=== PATIENT | male | born 1935 | race Caucasian/White ===

== ENCOUNTER 2017-10-27 10:29 | Outpatient (CLI) | payer MEDICARE, OTHER ==
--- NOTE | 2017-10-27 12:50 | CT ---
CT LUMBAR SPINE: TECHNIQUE: Multiple axial tomograms obtained through the lumbar spine with multiplanar reconstruction. HISTORY: Low back pain. FINDINGS: Lumbar vertebrae maintain normal height. Degenerative disk changes are seen at all levels of the lum bar spine with vacuum phenomenon at multiple levels demonstrating gas in the disk spaces. There is n o evidence of spondylolysis. There is a slight listhesis at L5-S1. At L1-2, disk bulge combined with facet hypertrophy results in mild central canal stenosis. At L2-3, the disk bulge combined with facet and ligamentous hypertrophy results in mild central canal stenosis. At L3-4, disk bulge combined with facet and ligamentous hypertrophy is more prominent resulting in mo derate to severe central canal stenosis, bilateral foraminal stenosis secondary to hypertrophic ma e. At L4-5, disk bulge and hypertrophic change results in moderate to severe central canal stenosis. Bi lateral foraminal stenosis. At L5-S1, minimal disk bulge. There is prominent facet hypertrophy without significant central canal stenosis. Mild foraminal narrowing. IMPRESSION: Moderate to severe central canal stenosis seen at L3-4 and L4-5 as described above. Degenerative dis k changes at all levels as noted above. POS: [facility]
--- NOTE | 2017-10-27 13:27 | CT ---
HEAD CT NONCONTRAST: COMPARISON: No prior comparison. CLINICAL HISTORY: Altered mental status. FINDINGS: There is age-related parenchymal volume loss with mild compensatory dilatation of the ventricular sys tem. There is a moderate-sized region of left frontal encephalomalacia with ex vacuo dilatation of t he left frontal horn. There is scattered mild white matter hypoattenuation compatible with microvasc ular ischemic disease. There is no intracranial hemorrhage, mass effect, or midline shift. There is a small retention cyst anteriorly within the right maxillary sinus. Mild mucosal thickening of the p aranasal sinuses is present. IMPRESSION: 1. No acute intracranial abnormality. 2. Left frontal encephalomalacia superior imposed upon mild chronic microvascular ischemic disease. 3. Parenchymal volume loss. POS: [facility]
== END 2017-10-27 10:30 | disposition home or self-care (01) ==
LOC: TBSIIMAG 10:29
PROVIDERS: ATTEND Psychiatry & Neurology Neurology
DX: M47.816 Spondylosis without myelopathy or radiculopathy, lumbar region (principal); R25.9 Unspecified abnormal involuntary movements; M51.36 Other intervertebral disc degeneration, lumbar region; M48.061 Spinal stenosis, lumbar region without neurogenic claudication; G93.89 Other specified disorders of brain
CPT/HCPCS: 70450; 72131

== ENCOUNTER 2018-10-10 09:54 | Inpatient (IN) | payer MEDICARE ==
[2018-10-10] MEDS ORDERED: Acetaminophen 500 MG TAB ONE (10:45)
[2018-10-10 11:11] LABS: Band 9 % (5-11); Eosinophils 3 % (0-10); Hemoglobin 12.9 g/dL (14.0-18.0); Lymphocytes 13 % (21-51); MDiff Complete? YES; Mean Corpuscular HGB CONC 32.7 g/dL (32.0-36.0); Mean Corpuscular Hemoglobin 32.2 pg (27.0-31.0); Mean Corpuscular Volume 98.4 fL (78.0-98.0); Mean Platelet Volume 7.7 fL (7.4-10.4); Monocytes 3 % (0-10); Neutrophil 72 % (42-75); Platelet Count 236 thou/uL (130-400); Red Blood Cell (RBC) Count 4.01 mill/uL (4.70-6.10); White Blood Cell (WBC) Count 10.5 thou/uL (4.8-10.8)
[2018-10-10 11:11] LABS: ALT (SGPT) 28 U/L (8-55); AST (SGOT) 37 U/L (5-34); Albumin 3.4 g/dL (3.4-4.8); Alkaline Phosphatase 61 U/L (40-150); Anion Gap 14 mmol/L (10-20); BUN (Urea Nitrogen) 28 mg/dL (8.4-25.7); Bilirubin, Total 0.8 mg/dL (0.2-1.2); Calc. Creatinine Clearance 0 mL/min (70-130); Calcium 9.6 mg/dL (7.8-10.44); Carbon Dioxide 23 mmol/L (23-31); Chloride 108 mmol/L (98-107); Estimated GFR-MDRD 55; Globulin 3.9 g/dL (2.4-3.5); Glucose 113 mg/dL (83-110); Protein, Total 7.3 g/dL (5.8-8.1); Sodium 141 mmol/L (136-145)
[2018-10-10 11:34] LABS: CKMB 4.9 ng/mL (0-6.6)
[2018-10-10 12:10] LABS: Bilirubin Negative (Negative); Blood, Urine Negative (Negative); Clarity CLOUDY (Clear); Glucose, Urine (Dipstick) Negative (Negative); Leukocyte Negative (Negative); Nitrite Negative (Negative); Protein, Urine (Dipstick) 30 mg/dL (Neg-Trace); Specific Gravity, Urine 1.023 (1.002-1.036); Urobilinogen 0.2 mg/dL (0.2-1.0)
[2018-10-10 12:11] LABS: Bacteria/HPF None Seen HPF (None Seen); Hyaline Casts/LPF 7-10 HYALINE CAST LPF (0-3 Hyaline); Pathc Cast-AUWi Flag 1.88 (0-2.49); Squamous Epithelial 0-3 HPF (0-3); WBC/HPF 0-3 HPF (0-3)
[2018-10-10 12:12] LABS: RBC/HPF None Seen HPF (0-3); Renal Epithelial None Seen HPF (0-3); Transitional Epithelial NONE SEEN HPF (0-3)
--- NOTE | 2018-10-10 12:15 | RAD ---
CHEST 1 VIEW: Date: 10/10/18 HISTORY: Fever. FINDINGS: No comparison. Cardiac silhouette is magnified by projection. Pulmonary vasculature is unremarkable. Patient is slig htly rotated rightward. No lobar consolidation or evidence of pneumothorax. Mild bibasilar atelectasi s. There is calcification in the arterial structures and a dual lead left subclavian cardiac electron ic device. IMPRESSION: 1. Atherosclerosis. 2. No active cardiopulmonary abnormalities are otherwise demonstrated. POS: [facility]
[2018-10-10] MEDS ORDERED: Aspirin 325 MG TAB ONE (13:15)
[2018-10-10] MEDS ORDERED: cefTRIAXone\\ROCEPHIN 2 GM VIAL ONE (13:15)
[2018-10-10 14:34] LABS: Troponin I 0.029 ng/mL (< 0.028)
--- NOTE | 2018-10-10 14:49 | CT ---
CT HEAD NONCONTRAST DATE: 10/10/18 HISTORY: Altered mental status. FINDINGS: Compared to 10/27/17. There is no evidence of acute intracranial hemorrhage or infarct. Diffuse cortical atrophy and chroni c ischemic small vessel disease are again demonstrated. Old left frontal infarct appears stable. No m ass effect or shift of midline structures. There is calcification of the arterial structures of the b rain base. Visualized paranasal sinuses remain well aerated. IMPRESSION: Chronic-type findings are stable. No acute intracranial abnormalities are demonstrated. POS: [facility]
[2018-10-10] MEDS ORDERED: Calcium Carbonate 500 MG ChewTAB PO PRN (15:23)
[2018-10-10] MEDS ORDERED: Ondansetron ODT 4 MG TAB PO PRN (15:23)
[2018-10-10] MEDS ORDERED: Ondansetron PF 4 MG/2 ML Vial IVP PRN (15:23)
[2018-10-10] MEDS ORDERED: Nitroglycerin 0.4 MG TAB (25 Tab Bottle) PO PRN (15:23)
[2018-10-10] MEDS ORDERED: Vancomycin HCl 1 GM in Premix Bag 1 BAG IVPB SCH ×2 (15:30→18:45)
--- NOTE | 2018-10-10 15:49 | HP ---
PRIMARY CARE PHYSICIAN: Brett Calvo MD PRIMARY NEUROLOGIST: Law Fuentes MD CHIEF COMPLAINT: Altered mentation. HISTORY OF PRESENT ILLNESS: The patient is an 83-year-old male with Parkinson disease, presented to the emergency room by his family with generalized weakness along with altered mentation of 5 to 6 days duration. The patient currently lives at home with his . He had a stroke approximately 1 year ago and has mild cognitive deficit as well as Parkinson disease. He is normally able to walk on his own. However, over the last 5 days, he has been bedridden. He has been very slow to respond. No aggravating or relieving factor reported. There is no nausea, vomiting, diarrhea, or constipation. Weakness of one extremity more than the other. Neck stiffness, cough, shortness of breath, or wheezing reported. In the emergency room, his initial vital signs showed temperature 101.1, respiration 24, pulse rate of 77 with blood pressure 192/96 with O2 saturation 98% on room air. Chest x-ray was negative for infiltrate. He received ceftriaxone, Tylenol, aspirin, and IV fluids in the emergency room. PAST MEDICAL HISTORY: 1. Parkinson disease. 2. History of cerebrovascular accident. 3. Sick sinus syndrome, status post pacemaker. 4. Chronic sinusitis. 5. Benign prostatic hypertrophy. PAST SURGICAL HISTORY: Pacemaker placement. Cataract surgery in the left eye last year. ALLERGIES: THE PATIENT IS ALLERGIC TO PENICILLIN. CURRENT HOME MEDICATIONS: 1. Finasteride 5 mg daily. 2. Flomax 0.4 mg daily. 3. Aspirin 81 mg daily. SOCIAL HISTORY: As discussed above, he is a former smoker. He is retired. Spouse is the decision maker. He is a do not resuscitate. FAMILY HISTORY: Heart disease and hypertension runs in his family. REVIEW OF SYSTEMS: Cannot be obtained from the patient due to current cognitive status. PHYSICAL EXAMINATION: VITAL SIGNS: As discussed above. GENERAL: An 83-year-old male with altered mentation. HEENT: Head; atraumatic, normocephalic. Sclerae are anicteric. Dry mucous membranes. No oral lesion. NECK: Supple. No JVD. No neck stiffness. LUNGS: Showed diminished air entry at bilateral bases with scattered rales. Lungs were symmetrical. No significant wheezing appreciated. HEART: S1 and S2 present. Regular rate and rhythm. No rubs or gallops appreciated. 2/6 systolic murmur over the mitral area noted. ABDOMEN: Soft, nontender. Bowel sounds present. No rebound or guarding. No costovertebral angle tenderness. EXTREMITIES: No edema or calf tenderness. NEUROLOGY AND PSYCHIATRY: Could not be reliably done due to current cognitive status. The patient opens eyes to verbal commands and goes back to sleep. He was alert, awake, and oriented x2 per RN earlier today. He was following commands appropriately according to the ER nurse. SKIN: Warm and dry. LYMPH NODES: No palpable lymph nodes in the neck. PERIPHERAL VASCULAR: Radial pulses palpable bilaterally. MUSCULOSKELETAL: No joint swelling or tenderness. LABORATORY FINDINGS: CBC showed WBC 10.5, hemoglobin 12.9, hematocrit 39.5, and platelet of 236. Urinalysis showed hyaline casts. Chemistry showed sodium 141, potassium 4, chloride 108, bicarb 23, BUN 28, and creatinine 1.26. Troponin 0.029 with CK-MB 4.9. Lactic acid 1.2. Influenza testing was negative. Chest x-ray by my review was negative for definite infiltrate. CT scan of the brain showed chronic findings. IMPRESSION: 1. Generalized weakness, multifactorial. 2. Toxic metabolic encephalopathy. 3. Sepsis suspected secondary to pneumonia. Exact source unknown. Questionable aspiration pneumonia. 4. Macrocytic anemia, rule out vitamin B12, folic acid deficiency. 5. Benign prostatic hypertrophy. 6. Parkinson disease. 7. Penicillin allergy. 8. Dehydration/prerenal azotemia. 9. Chronic kidney disease, stage 2. 10. Elevated troponins probably secondary to demand ischemia. 11. History of cerebrovascular accident. PLAN: The patient will be monitored on the Telemetry Unit. Serial troponins will be obtained. Empiric antibiotics will be initiated for possible pneumonia. Blood and urine cultures have been sent. We will recheck labs in a.m. IV hydration. We will check vitamin B12, folic acid for anemia as well as progressive cognitive deficit. Physical Therapy, Occupational Therapy, and Speech Therapy will be consulted. Frequent neuro checks. Plan of care was discussed with the family at the bedside. They stated understanding. CODE STATUS: Do not resuscitate, which was confirmed with the spouse. Job ID: [id number]
[2018-10-10] MEDS ORDERED: Levofloxacin 500 mg/D5W 100 ml Premix Bag ONE (15:59)
[2018-10-10] MEDS: Sodium Chloride 0.9% 1,000 ML IV SCH (16:01)
[2018-10-10 16:58] VITALS: BMI 25.8
[2018-10-10 17:36] LABS: Troponin I 0.024 ng/mL (< 0.028)
[2018-10-10] MEDS: Senokot S 8.6-50 MG TAB PO SCH (21:20)
[2018-10-10] MEDS: Tamsulosin HCl 0.4 MG CAP PO SCH (22:16)
[2018-10-11] MEDS: Sodium Chloride 0.9% 1,000 ML IV SCH ×2 (03:21→16:23)
[2018-10-11] MEDS: Acetaminophen 325 MG TAB PO PRN ×2 (03:29→17:15)
[2018-10-11 06:48] LABS: Anion Gap 10 mmol/L (10-20); BUN (Urea Nitrogen) 31 mg/dL (8.4-25.7); Calc. Creatinine Clearance 62 mL/min (70-130); Calcium 8.1 mg/dL (7.8-10.44); Carbon Dioxide 24 mmol/L (23-31); Chloride 111 mmol/L (98-107); Estimated GFR-MDRD 79; Glucose 106 mg/dL (83-110); Magnesium 1.5 mg/dL (1.6-2.6); Potassium 3.6 mmol/L (3.5-5.1); Sodium 141 mmol/L (136-145)
[2018-10-11 07:04] LABS: Band 6 % (5-11); Eosinophils 4 % (0-10); Folate (Folic Acid) 13.2 ng/mL (7.0-31.4); Hemoglobin 10.5 g/dL (14.0-18.0); Lymphocytes 5 % (21-51); MDiff Complete? YES; Mean Corpuscular Hemoglobin 32.7 pg (27.0-31.0); Mean Corpuscular Volume 98.9 fL (78.0-98.0); Monocytes 13 % (0-10); Neutrophil 72 % (42-75); Platelet Count 193 thou/uL (130-400); RBC Distribution Width 11.9 % (11.5-14.5); White Blood Cell (WBC) Count 8.1 thou/uL (4.8-10.8)
[2018-10-11] MEDS ORDERED: Magnesium 2 GM/50 ML 2 GM in Premix Bag 1 BAG IVPB SCH (07:30)
[2018-10-11] MEDS ORDERED: Magnesium Sulfate 2 GM in Sodium Chloride 0.9% 100 ML IVPB SCH (07:30)
[2018-10-11] MEDS ORDERED: Prevnar 13-Val Conj/PF 0.5 ML SYRINGE IM ONE (09:00)
--- NOTE | 2018-10-11 09:40 | RAD ---
CHEST 1 VIEW: Date: 10/11/18 HISTORY: Fever. COMPARISON: 10/10/18. FINDINGS: Cardiac silhouette is magnified by projection. Shallow inspiration accentuates pulmonary markings. Me diastinum is midline with aortic calcification and a dual lead left subclavian cardiac electronic dev ice. No lobar consolidation or evidence of pneumothorax. IMPRESSION: Stable radiographic appearance of the chest. POS: [facility]
[2018-10-11] MEDS: Finasteride 5 MG TAB PO SCH (12:11)
[2018-10-11] MEDS: Saccharomyces boulardii 250 MG CAP PO SCH (12:12)
[2018-10-11] MEDS: Aspirin 81 mg Enteric Coated Tablet PO SCH (12:13)
[2018-10-11] MEDS: Multivit, Therapeutic 1 TAB PO SCH (12:13)
[2018-10-11] MEDS: Senokot S 8.6-50 MG TAB PO SCH ×2 (12:13→20:36)
[2018-10-11] MEDS: Enoxaparin Sodium 30 MG/0.3 ML SYRINGE SC SCH (12:14)
--- NOTE | 2018-10-11 16:03 | PDOC.PN ---
- Subjective Encounter Start Date: 10/11/18 Encounter Start Time: 09:30 Patient seen and examined for Gen weakness/AMS. Mentation improving. No new complaints. No overnight events - Objective Resuscitation Status - Order Detail: 10/10/18 15:23 Resuscitation Status Routine Resuscitation Status: DNAR: NO Resuscitation Discussed with: confirmed with spouse ANAY Reviewed: Yes Vital Signs & Weight: Vital Signs (12 hours) Temp Pulse Resp BP Pulse Ox 10/11/18 12:00 97.6 F 70 18 142/65 H 96 10/11/18 07:50 98 10/11/18 07:33 98.6 F 61 18 124/58 L 98 Weight Weight 160 lb 0.889 oz I&O: 10/10/18 10/11/18 10/12/18 06:59 06:59 06:59 Intake Total 1267 Balance 1267 Result Diagrams: 10/11/18 05:21 10/11/18 05:21 Additional Labs: Microbiology 10/10/18 16:20 Nasopharyngeal swab Respiratory Panel (PCR) - Final 10/10/18 12:04 Nasal swab Influenza Types A,B Direct EIA - Final 10/10/18 11:20 Urine Straight Catheter Urine Culture - Preliminary NO GROWTH AT 24 HOURS 10/10/18 10:29 Venous blood - Left Hand Blood Culture - Preliminary Specimen has been received and culture in progress. No Growth to date. 10/10/18 10:28 Venous blood - Right Arm Blood Culture - Preliminary Specimen has been received and culture in progress. No Growth to date. Laboratory Tests 10/11/18 10/11/18 05:21 05:21 Magnesium 1.5 L Vitamin B12 1060 H Folate 13.20 EKG Reviewed by me: Yes (Tele SR) Phys Exam - Physical Examination Constitutional: NAD Respiratory: no wheezing, no rhonchi Cardiovascular: RRR, no rub Gastrointestinal: soft, non-tender, positive bowel sounds Musculoskeletal: no edema Neurological: moves all 4 limbs Dx/Plan (1) General weakness Code(s): R53.1 - WEAKNESS Status: Acute (2) Toxic metabolic encephalopathy Code(s): G92 - TOXIC ENCEPHALOPATHY Status: Acute (3) Sepsis Code(s): A41.9 - SEPSIS, UNSPECIFIED ORGANISM Status: Acute Qualifiers: Sepsis type: sepsis due to unspecified organism Qualified Code(s): A41.9 - Sepsis, unspecified organism (4) Hypomagnesemia Code(s): E83.42 - HYPOMAGNESEMIA Status: Acute (5) BPH (benign prostatic hyperplasia) Code(s): N40.0 - BENIGN PROSTATIC HYPERPLASIA WITHOUT LOWER URINRY TRACT SYMP Status: Chronic (6) Other issues per previous notes - Plan DVT proph w/lovenox, DVT proph w/SCDs * Cont Atbx * Await ID input * Source of Sepsis unclear * AM labs * Replace Magnessium * Change IVF to 10/07 NS * Cont other meds as below Review of Systems - Review of Systems Respiratory: negative: Cough, Dry, Shortness of Breath, Hemoptysis, SOB with Excertion, Pleuritic Pain, Sputum, Wheezing Cardiovascular: negative: chest pain, palpitations, orthopnea, paroxysmal nocturnal dyspnea, edema, light headedness, other - Medications/Allergies Allergies/Adverse Reactions: Allergies Allergy/AdvReac Type Severity Reaction Status Date / Time Penicillins Allergy Severe Verified 10/10/18 14:38 Medications: Current Medications Acetaminophen (Tylenol) 650 mg PO Q4H PRN PRN Reason: Headache/Fever/Mild Pain (1-3) Last Admin: 10/11/18 03:29 Dose: 650 mg Aspirin (Ecotrin) 81 mg PO DAILY [facility] Last Admin: 10/11/18 12:13 Dose: 81 mg Calcium Carbonate (Tums) 1,000 mg PO Q4H PRN PRN Reason: Heartburn or Indigestion Enoxaparin Sodium (Lovenox) 30 mg SC 0900 [facility] Last Admin: 10/11/18 12:14 Dose: 30 mg Finasteride (Proscar) 5 mg PO DAILY [facility] Last Admin: 10/11/18 12:11 Dose: 5 mg Sodium Chloride (Normal Saline 0.9%) 1,000 mls @ 125 mls/hr IV .Q8H [facility] Last Admin: 10/11/18 03:21 Dose: 1,000 mls Vancomycin HCl 750 mg/ Sodium (Chloride) 250 mls @ 250 mls/hr IVPB 2100 [facility] Levofloxacin 250 mg/ Device 50 mls @ 100 mls/hr IVPB 1600 [facility] Miscellaneous Medication (Pharmacy To Dose) 1 each IVPB PRN PRN PRN Reason: Pharmacy to dose Multivitamins (Theragran) 1 tab PO DAILY [facility] Last Admin: 10/11/18 12:13 Dose: 1 tab Nitroglycerin (Nitrostat) 0.4 mg PO Q5MIN PRN PRN Reason: Chest Pain Ondansetron HCl (Zofran Odt) 4 mg PO Q6H PRN PRN Reason: Nausea/Vomiting Ondansetron HCl (Zofran) 4 mg IVP Q6H PRN PRN Reason: Nausea/Vomiting Saccharomyces Boulardii (Florastor) 250 mg PO DAILY [facility] Last Admin: 10/11/18 12:12 Dose: 250 mg Senna/Docusate Sodium (Senokot S) 1 tab PO BID [facility] Last Admin: 10/11/18 12:13 Dose: 1 tab Sodium Chloride (Flush - Normal Saline) 10 ml IVF PRN PRN PRN Reason: Saline Flush Tamsulosin HCl (Flomax) 0.4 mg PO HS [facility] Last Admin: 10/10/18 22:16 Dose: 0.4 mg
[2018-10-11] MEDS: Sodium Chloride 0.45% 1,000 ML IV SCH (17:15)
--- NOTE | 2018-10-11 20:15 | CON ---
DATE OF CONSULTATION: 10/11/2018 REASON FOR CONSULTATION: Fever. HISTORY OF PRESENT ILLNESS: An 83-year-old patient with history of Parkinson disease and prior CVA as well as a pacemaker, who according to the , developed weakness, inability to transfer for the past 5 to 6 days before admission. No fever was identified initially. She also denies that he was presenting with any pain or cough or genitourinary symptoms or diarrhea. Throughout these almost 7 days, he always kept his appetite. She had to ask a friend to help out to place him in bed at night because of his weakness. Eventually, he was brought in to the emergency room. An initial temperature was 101.1 with a respiratory rate of 24. The initial evaluation demonstrated altered mentation. The lung exam with scattered inspiratory crackles. The heart examination was normal except for a systolic murmur. The abdomen was normal. The patient would open eyes, but fell back to sleep immediately. He is able to tell his name and location subsequently. INITIAL LABORATORY DATA: White cell count 10.5, hemoglobin 12.9, platelets 236 with 9% bands, 72% neutrophils. Sodium was 141, creatinine 1.26, AST 37, ALT 28, albumin 3.4. Urinalysis was fairly unremarkable. Microbiology thus far we have a negative respiratory virus PCR panel. Influenza A and B negative. Cultures from urine blood samples negative thus far. Initial chest imaging study without any infiltrates. He also had a brain CT scan with chronic findings. Repeat chest x-ray done today with stable findings. Currently, Mr. Stewart is eating his lunch, seems to have an excellent appetite. His is in the room with him. He denied any headaches. No sore throat. No back pain. No cough. No chest pain or abdominal pain. He is urinating in diapers. He feels that his bladder is somewhat full, but not too full reportedly. PAST MEDICAL HISTORY: Parkinson disease, prior CVA, sick sinus syndrome with pacemaker, sinusitis, BPH, and prior episodes of urinary retention. PAST SURGICAL HISTORY: Pacemaker placement, cataract surgery. ALLERGIES: PENICILLIN WITH RASH LONG TIME AGO. CURRENT MEDICATIONS: 1. Tylenol. 2. Ecotrin. 3. Tums. 4. Lovenox. 5. Proscar. 6. Levofloxacin. 7. Zofran. 8. Florastor. 9. Tamsulosin. 10. Vancomycin. FAMILY HISTORY: Noncontributory. SOCIAL HISTORY: Former smoker, retired. PHYSICAL EXAMINATION: VITAL SIGNS: T-max 101.2 earlier today at 3:00 in the morning, BP 140/60, pulse 70, and respirations 18. SKIN: No abnormalities. The patient has a peripheral IV access. He is voiding in the diaper. HEENT: No lymphadenopathy. Ocular movements conjugate. Oral cavity moist. Still quite a few teeth in place. NECK: Supple. No jugular venous distention. LUNGS: Symmetric air entry without crackles or wheezing. HEART: S1 and S2. Regular rate with a soft murmur. ABDOMEN: Soft, not distended. Question of bladder distention. EXTREMITIES: No joint inflammatory activity. No edema. Stiff in all joints. Plantar responses are flexor. No clonus. NEUROLOGIC: He is awake, knows his name, recognizes . He knew he was in the hospital, but could not tell me which or did not know the date. LABORATORY DATA: Has been reviewed above. ASSESSMENT: 1. Parkinson disease with prior cerebrovascular accident. 2. Fever with weakness. 3. Lethargy. DISCUSSION: Differential diagnosis includes viral infection, which was not identified in the PCR versus thromboembolic disorder versus another CVA versus not yet identified intraabdominal inflammatory process versus urinary retention. We will start workup with a bladder ultrasound postvoid done by the nurse to rule out urinary retention. Intrathoracic inflammatory process appears to be less likely. Thromboembolism is not ruled out and we will check his duplex ultrasound of lower extremities in view of his mobility impairment, the possibility of DVT with pulmonary embolism. If the patient continues to have fever, then we will have to order a CT of chest and abdomen with contrast to evaluate this part of the workup for fever of unknown etiology in an adult. Job ID: [id number]
[2018-10-11] MEDS: Tamsulosin HCl 0.4 MG CAP PO SCH (20:36)
[2018-10-11] MEDS ORDERED: Vancomycin HCl 750 MG in Sodium Chloride 0.9% 250 ML 250 ML IVPB SCH (21:00)
--- NOTE | 2018-10-11 23:06 | ULT ---
BILATERAL LOWER EXTREMITY VENOUS DOPPLER DUPLEX ULTRASOUND: CPT: 66966 ICD-10-PCS: B54D INDICATIONS: Fever. Pain. Immobility. TECHNIQUE: Color-flow Doppler, spectral wave-form analysis of pulsed Doppler, and scruggs-scale imaging with compre ssion and augmentation were used to evaluate the bilateral common femoral, femoral, popliteal, rough patcher ior tibial, and superficial femoral veins, and the proximal portions of the profunda femoral and grea ter saphenous veins. FINDINGS: There is appropriate compressibility and flow within the imaged deep venous system of each lower extr emity without evidence of DVT. IMPRESSION: No deep venous thrombosis of the visualized bilateral lower extremities. POS: [facility]
[2018-10-12] MEDS: Acetaminophen 325 MG TAB PO PRN (05:21)
[2018-10-12] MEDS: Sodium Chloride 0.45% 1,000 ML IV SCH (05:22)
[2018-10-12 08:29] LABS: Anion Gap 10 mmol/L (10-20); BUN (Urea Nitrogen) 30 mg/dL (8.4-25.7); Calc. Creatinine Clearance 53 mL/min (70-130); Calcium 8.1 mg/dL (7.8-10.44); Carbon Dioxide 24 mmol/L (23-31); Chloride 110 mmol/L (98-107); Estimated GFR-MDRD 66; Glucose 117 mg/dL (83-110); Magnesium 1.8 mg/dL (1.6-2.6); Potassium 3.5 mmol/L (3.5-5.1); Sodium 140 mmol/L (136-145)
[2018-10-12 09:40] LABS: Band 19 % (5-11); Eosinophils 6 % (0-10); Hemoglobin 10.2 g/dL (14.0-18.0); Lymphocytes 8 % (21-51); MDiff Complete? YES; Mean Corpuscular HGB CONC 32.2 g/dL (32.0-36.0); Mean Corpuscular Hemoglobin 32.1 pg (27.0-31.0); Mean Corpuscular Volume 99.5 fL (78.0-98.0); Mean Platelet Volume 7.7 fL (7.4-10.4); Monocytes 6 % (0-10); Neutrophil 61 % (42-75); Platelet Count 211 thou/uL (130-400); Polychromasia SLIGHT = 2-3 cells (100X) (0-2/hpf); Red Blood Cell (RBC) Count 3.18 mill/uL (4.70-6.10); White Blood Cell (WBC) Count 7.5 thou/uL (4.8-10.8)
[2018-10-12] MEDS: Multivit, Therapeutic 1 TAB PO SCH (10:04)
[2018-10-12] MEDS: Finasteride 5 MG TAB PO SCH (10:04)
[2018-10-12] MEDS: Senokot S 8.6-50 MG TAB PO SCH ×2 (10:05→20:42)
[2018-10-12] MEDS: Saccharomyces boulardii 250 MG CAP PO SCH (10:05)
[2018-10-12] MEDS: Enoxaparin Sodium 30 MG/0.3 ML SYRINGE SC SCH (10:05)
[2018-10-12] MEDS: Aspirin 81 mg Enteric Coated Tablet PO SCH (10:05)
[2018-10-12] MEDS ORDERED: Sodium Chloride 0.45% 1,000 ML IV SCH (10:24)
--- NOTE | 2018-10-12 11:12 | CT ---
CT OF THE CHEST AND ABDOMEN AND PELVIS WITH IV CONTRAST: Date: 10/12/18 INDICATION: Fever of unknown origin. COMPARISON: CT lumbar spine dated 10/27/17. FINDINGS: Respiratory motion artifact slightly limits image detail of the thorax. There are small bilateral ple ural effusions with bibasilar atelectasis. There is scattered vascular calcification involving the co ronary artery and thoracic aorta. There is a dual lead pacemaker overlying the left chest wall. No pa thologically enlarged lymph nodes are evident within the mediastinum, visualized hilar regions, and a xillary regions. There are tiny hypodensities involving both kidneys, too small to characterize, but statistically lik lin reflective of tiny cysts. There is a 1.2 cm hypodense lesion with suspicion for internal septatio ns involving the right mid kidney on image 63 of series 2 and image 93 of the coronal series. No focal hepatic lesion is evident. Spleen is normal in size. Visualized pancreas is unremarkable. Ad renal glands are normal appearing. There is scattered diverticula without evidence of active divertic ulosis. There is a 1.7 cm bladder stone within the left posterolateral aspect of the bladder. The pro state is enlarged, measuring 5.5 cm. Small bowel is of normal caliber. There is a small right inguina l hernia containing fluid and fat. There is an age-indeterminate compression abnormality at T11, whic h is new from the comparison dated 10/27/17. There is mild thoracolumbar scoliosis. There is scattere d degenerative and osteoarthritic change. IMPRESSION: 1. Bilateral pleural effusions and bibasilar atelectasis may reflect volume overload or mild CHF. 2. Hypodensity within the right mid kidney with suspicion for internal septations. A follow-up CT of the abdomen utilizing a renal mass protocol would be helpful for further characterization. The are o ther renal hypodensities, too small to characterize, but statistically likely reflective of cyst. 3. Colonic diverticulosis without evidence of active diverticulitis. 4. Bladder stone. 5. Mild prostate enlargement. 6. Right inguinal hernia containing fat and a small amount of fluid within the inguinal canal. 7. Age-indeterminate superior end plate compression abnormality of T11. A bone scan may be helpful t o evaluate acuity. POS: [facility]
[2018-10-12] MEDS ORDERED: Iopamidol 370 76% 50 ML VIAL FS ONE (11:55)
--- NOTE | 2018-10-12 15:13 | PDOC.PN ---
- Subjective Encounter Start Date: 10/12/18 Encounter Start Time: 07:30 Patient seen and examined for Sepsis. Was febrile earlier. No cough/SOB/ wheezing. No new complaints. No overnight events - Objective Resuscitation Status - Order Detail: 10/10/18 15:23 Resuscitation Status Routine Resuscitation Status: DNAR: NO Resuscitation Discussed with: confirmed with spouse ANAY Reviewed: Yes Vital Signs & Weight: Vital Signs (12 hours) Temp Pulse Resp BP Pulse Ox 10/12/18 13:17 69 20 94 L 10/12/18 12:00 98.0 F 62 20 135/77 94 L 10/12/18 08:00 98.2 F 60 20 158/76 H 94 L 10/12/18 06:53 94 L 10/12/18 05:00 101.7 F H 65 19 128/63 92 L Weight Weight 160 lb 0.889 oz I&O: 10/11/18 10/12/18 10/13/18 06:59 06:59 06:59 Intake Total 1267 1300 Balance 1267 1300 Result Diagrams: 10/12/18 07:43 10/12/18 07:43 Phys Exam - Physical Examination Constitutional: NAD Respiratory: no wheezing, no rhonchi dec AE at bases Cardiovascular: RRR, no rub Gastrointestinal: soft, non-tender, positive bowel sounds Musculoskeletal: no edema Neurological: moves all 4 limbs Dx/Plan (1) General weakness Code(s): R53.1 - WEAKNESS Status: Acute (2) Toxic metabolic encephalopathy Code(s): G92 - TOXIC ENCEPHALOPATHY Status: Acute (3) Sepsis Code(s): A41.9 - SEPSIS, UNSPECIFIED ORGANISM Status: Acute Qualifiers: Sepsis type: sepsis due to unspecified organism Qualified Code(s): A41.9 - Sepsis, unspecified organism Comment: source? (4) Hypomagnesemia Code(s): E83.42 - HYPOMAGNESEMIA Status: Acute (5) BPH (benign prostatic hyperplasia) Code(s): N40.0 - BENIGN PROSTATIC HYPERPLASIA WITHOUT LOWER URINRY TRACT SYMP Status: Chronic (6) Other issues per previous notes - Plan plan discussed w/ family, DVT proph w/lovenox, DVT proph w/SCDs * Cont Vancomycin and Levaquin * Monitor Vancomycin level * CT abd and pelvis due to persistent fever without obvious etiology * AM labs * Cont IVF * Cont other meds as below Review of Systems - Review of Systems Respiratory: negative: Cough, Dry, Shortness of Breath, Hemoptysis, SOB with Excertion, Pleuritic Pain, Sputum, Wheezing Cardiovascular: negative: chest pain, palpitations, orthopnea, paroxysmal nocturnal dyspnea, edema, light headedness, other - Medications/Allergies Allergies/Adverse Reactions: Allergies Allergy/AdvReac Type Severity Reaction Status Date / Time Penicillins Allergy Severe Verified 10/10/18 14:38 Medications: Current Medications Acetaminophen (Tylenol) 650 mg PO Q4H PRN PRN Reason: Headache/Fever/Mild Pain (1-3) Last Admin: 10/12/18 05:21 Dose: 650 mg Albuterol/Ipratropium (Duoneb) 3 ml NEB [id number] [facility] Last Admin: 10/12/18 13:17 Dose: 3 ml Albuterol/Ipratropium (Duoneb) 3 ml NEB [id number] PRN PRN Reason: SOB &/or Wheezing Aspirin (Ecotrin) 81 mg PO DAILY [facility] Last Admin: 10/12/18 10:05 Dose: 81 mg Calcium Carbonate (Tums) 1,000 mg PO Q4H PRN PRN Reason: Heartburn or Indigestion Enoxaparin Sodium (Lovenox) 30 mg SC 0900 [facility] Last Admin: 10/12/18 10:05 Dose: 30 mg Finasteride (Proscar) 5 mg PO DAILY [facility] Last Admin: 10/12/18 10:04 Dose: 5 mg Furosemide (Lasix) 40 mg PO ONE [facility] Furosemide (Lasix) 40 mg PO DAILY-AC [facility] Vancomycin HCl 750 mg/ Sodium (Chloride) 250 mls @ 250 mls/hr IVPB 2100 [facility] Last Admin: 10/11/18 20:40 Dose: 250 mls Levofloxacin 250 mg/ Device 50 mls @ 100 mls/hr IVPB 1600 [facility] Last Admin: 10/12/18 15:06 Dose: 50 mls Miscellaneous Medication (Pharmacy To Dose) 1 each IVPB PRN PRN PRN Reason: Pharmacy to dose Multivitamins (Theragran) 1 tab PO DAILY [facility] Last Admin: 10/12/18 10:04 Dose: 1 tab Nitroglycerin (Nitrostat) 0.4 mg PO Q5MIN PRN PRN Reason: Chest Pain Ondansetron HCl (Zofran Odt) 4 mg PO Q6H PRN PRN Reason: Nausea/Vomiting Ondansetron HCl (Zofran) 4 mg IVP Q6H PRN PRN Reason: Nausea/Vomiting Saccharomyces Boulardii (Florastor) 250 mg PO DAILY [facility] Last Admin: 10/12/18 10:05 Dose: 250 mg Senna/Docusate Sodium (Senokot S) 1 tab PO BID [facility] Last Admin: 10/12/18 10:05 Dose: 1 tab Sodium Chloride (Flush - Normal Saline) 10 ml IVF PRN PRN PRN Reason: Saline Flush Tamsulosin HCl (Flomax) 0.4 mg PO HS [facility] Last Admin: 10/11/18 20:36 Dose: 0.4 mg
[2018-10-12] MEDS ORDERED: Furosemide 40 MG TAB PO SCH (16:00)
--- NOTE | 2018-10-12 17:50 | PRG ---
DATE OF SERVICE: SUBJECTIVE: A little bit diaphoretic, a little bit of chills. The patient has hypomotility typical of Parkinson disease and he says basically that is fine for every single question. Has not had much cough. OBJECTIVE: VITAL SIGNS: T-max of 101.7 at 5 a.m. today. His BP is 130/70, pulse 62, respirations 20. HEENT: Ocular movements conjugate. Sclerae white. Oral cavity moist. NECK: Supple. LUNGS: With right basilar expiratory crackles with egophony suggesting an infiltrate. HEART: S1 and S2. Regular rate. ABDOMEN: Soft, not distended. DIAGNOSTIC DATA: White cell count 7.5, hemoglobin 10.2, platelets 211, sodium 140, creatinine 1.07. Respiratory virus PCR panel negative. Blood cultures and urine culture negative. CT abdomen, chest, and pelvis with motion artifact in the respiratory part, small bilateral effusions, bibasilar atelectasis. The other findings in the anterior abdominal area are not particularly remarkable. There is 1.7 cm bladder stone. Prostate is enlarged. ASSESSMENT AND DISCUSSION: Parkinson disease with prior cerebrovascular accident, fever, weakness, lethargy, abnormal lung examination, and enlarged prostate gland with possible urinary retention. Venogram was negative. At this point, we will change his antimicrobial therapy in view of the abnormal lung examination. Discontinue vancomycin and levofloxacin. Switch him to meropenem assuming pneumonia. Recheck a postvoid residual with bedside ultrasound. Job ID: [id number]
[2018-10-12] MEDS: MEROPENEM 1 GM/50 ML 1 GM in Premix Bag 1 BAG IVPB SCH (17:51)
[2018-10-12] MEDS: Tamsulosin HCl 0.4 MG CAP PO SCH (20:42)
[2018-10-12 21:31] LABS: Vancomycin, Trough 7.3 ug/mL
[2018-10-13] MEDS: Acetaminophen 325 MG TAB PO PRN ×2 (00:27→08:48)
[2018-10-13] MEDS: MEROPENEM 1 GM/50 ML 1 GM in Premix Bag 1 BAG IVPB SCH ×3 (02:33→17:05)
[2018-10-13] MEDS: Furosemide 40 MG TAB PO SCH (08:47)
[2018-10-13] MEDS: Multivit, Therapeutic 1 TAB PO SCH (08:48)
[2018-10-13] MEDS: Saccharomyces boulardii 250 MG CAP PO SCH (08:48)
[2018-10-13] MEDS: Aspirin 81 mg Enteric Coated Tablet PO SCH (08:48)
[2018-10-13] MEDS: Finasteride 5 MG TAB PO SCH (08:48)
[2018-10-13] MEDS: Enoxaparin Sodium 30 MG/0.3 ML SYRINGE SC SCH (08:48)
[2018-10-13] MEDS: Senokot S 8.6-50 MG TAB PO SCH ×2 (08:48→21:46)
[2018-10-13 09:21] LABS: #Eosinphils 0.5 thou/uL (0.0-0.7); #Lymphocytes 0.5 thou/uL (1.20-3.40); #Monocytes 1.4 thou/uL (0.11-0.59); #Neutrophils 7.2 thou/uL (1.40-6.50); %Basophils 0.3 % (0.0-1.0); %Eosinophils 4.7 % (0.0-10.0); %Lymphocytes 4.8 % (21.0-51.0); %Monocytes 14.5 % (0.0-10.0); %Neutrophils 75.7 % (42.0-75.0); Hemoglobin 11.5 g/dL (14.0-18.0); Mean Corpuscular HGB CONC 32.2 g/dL (32.0-36.0); Mean Corpuscular Volume 99.5 fL (78.0-98.0); Mean Platelet Volume 7.6 fL (7.4-10.4); Platelet Count 274 thou/uL (130-400); RBC Distribution Width 12.2 % (11.5-14.5); White Blood Cell (WBC) Count 9.5 thou/uL (4.8-10.8)
[2018-10-13 09:48] LABS: Anion Gap 14 mmol/L (10-20); BUN (Urea Nitrogen) 25 mg/dL (8.4-25.7); Calc. Creatinine Clearance 50 mL/min (70-130); Calcium 8.7 mg/dL (7.8-10.44); Carbon Dioxide 25 mmol/L (23-31); Chloride 104 mmol/L (98-107); Estimated GFR-MDRD 61; Glucose 141 mg/dL (83-110); Magnesium 1.7 mg/dL (1.6-2.6); Potassium 3.5 mmol/L (3.5-5.1); Sodium 139 mmol/L (136-145)
[2018-10-13] MEDS: Potassium Chloride 20 MEQ TAB PO SCH (17:05)
[2018-10-13] MEDS: Tamsulosin HCl 0.4 MG CAP PO SCH (21:46)
--- NOTE | 2018-10-13 22:27 | PDOC.PN ---
- Subjective Encounter Start Date: 10/13/18 Encounter Start Time: 09:00 Patient seen and examined for Sepsis. More awake. No new complaints. No overnight events - Objective Resuscitation Status - Order Detail: 10/10/18 15:23 Resuscitation Status Routine Resuscitation Status: DNAR: NO Resuscitation Discussed with: confirmed with spouse MAR Reviewed: Yes Vital Signs & Weight: Vital Signs (12 hours) Temp Pulse Resp BP Pulse Ox Pulse Ox Pulse Ox 10/13/18 20:00 99.6 F 89 16 177/70 H 91 L 10/13/18 18:19 88 160/88 H 10/13/18 16:00 98.6 F 78 18 179/73 H 92 L 10/13/18 15:12 93 L 97 10/13/18 14:35 77 20 96 10/13/18 11:49 97.4 F L 75 16 133/67 97 10/13/18 10:28 88 20 100 Pulse Ox 10/13/18 20:00 10/13/18 18:19 10/13/18 16:00 10/13/18 15:12 95 10/13/18 14:35 10/13/18 11:49 10/13/18 10:28 Weight Weight 160 lb 0.889 oz I&O: 10/12/18 10/13/18 10/14/18 06:59 06:59 06:59 Intake Total 1300 1400 920 Balance 1300 1400 920 Result Diagrams: 10/13/18 09:03 10/13/18 09:03 Phys Exam - Physical Examination Constitutional: NAD Respiratory: no wheezing Bibasilar rales with scat rhonchi Cardiovascular: RRR, no rub Gastrointestinal: soft, non-tender, positive bowel sounds Musculoskeletal: no edema Dx/Plan (1) General weakness Code(s): R53.1 - WEAKNESS Status: Acute (2) Toxic metabolic encephalopathy Code(s): G92 - TOXIC ENCEPHALOPATHY Status: Acute Comment: improving (3) Sepsis Code(s): A41.9 - SEPSIS, UNSPECIFIED ORGANISM Status: Acute Qualifiers: Sepsis type: sepsis due to unspecified organism Qualified Code(s): A41.9 - Sepsis, unspecified organism Comment: source? Prob Pneumonia ?Aspiration (4) Hypomagnesemia Code(s): E83.42 - HYPOMAGNESEMIA Status: Acute (5) BPH (benign prostatic hyperplasia) Code(s): N40.0 - BENIGN PROSTATIC HYPERPLASIA WITHOUT LOWER URINRY TRACT SYMP Status: Chronic (6) Other issues per previous notes - Plan cont current plan of care, plan discussed w/ family, continue antibiotics, PT/OT , speech therapy, incentive spirometry, DVT proph w/lovenox, DVT proph w/SCDs Cont Meropenem per ID -: AM labs including CRP -: Postvoid <200 -: Cont to monitor Review of Systems - Review of Systems Respiratory: negative: Cough, Dry, Shortness of Breath, Hemoptysis, SOB with Excertion, Pleuritic Pain, Sputum, Wheezing Cardiovascular: negative: chest pain, palpitations, orthopnea, paroxysmal nocturnal dyspnea, edema, light headedness, other Gastrointestinal: negative: Nausea, Vomiting, Abdominal Pain, Diarrhea, Constipation, Melena, Hematochezia, Other - Medications/Allergies Allergies/Adverse Reactions: Allergies Allergy/AdvReac Type Severity Reaction Status Date / Time Penicillins Allergy Severe Verified 10/10/18 14:38 Medications: Current Medications Acetaminophen (Tylenol) 650 mg PO Q4H PRN PRN Reason: Headache/Fever/Mild Pain (1-3) Last Admin: 10/13/18 08:48 Dose: 650 mg Albuterol/Ipratropium (Duoneb) 3 ml NEB [id number] [facility] Last Admin: 10/13/18 20:22 Dose: Not Given Albuterol/Ipratropium (Duoneb) 3 ml NEB [id number] PRN PRN Reason: SOB &/or Wheezing Aspirin (Ecotrin) 81 mg PO DAILY [facility] Last Admin: 10/13/18 08:48 Dose: 81 mg Calcium Carbonate (Tums) 1,000 mg PO Q4H PRN PRN Reason: Heartburn or Indigestion Finasteride (Proscar) 5 mg PO DAILY [facility] Last Admin: 10/13/18 08:48 Dose: 5 mg Furosemide (Lasix) 40 mg PO DAILY-[facility] Last Admin: 10/13/18 08:47 Dose: 40 mg Meropenem 1 gm/ Device 50 mls @ 100 mls/hr IVPB 0200,1000,1800 [facility] Last Admin: 10/13/18 17:05 Dose: 50 mls Miscellaneous Medication (Pharmacy To Dose) 1 each IVPB PRN PRN PRN Reason: Pharmacy to dose Multivitamins (Theragran) 1 tab PO DAILY [facility] Last Admin: 10/13/18 08:48 Dose: 1 tab Nitroglycerin (Nitrostat) 0.4 mg PO Q5MIN PRN PRN Reason: Chest Pain Ondansetron HCl (Zofran Odt) 4 mg PO Q6H PRN PRN Reason: Nausea/Vomiting Ondansetron HCl (Zofran) 4 mg IVP Q6H PRN PRN Reason: Nausea/Vomiting Potassium Chloride (K-Dur) 20 meq PO BID-[facility] Last Admin: 10/13/18 17:05 Dose: 20 meq Saccharomyces Boulardii (Florastor) 250 mg PO DAILY [facility] Last Admin: 10/13/18 08:48 Dose: 250 mg Senna/Docusate Sodium (Senokot S) 1 tab PO BID [facility] Last Admin: 10/13/18 21:46 Dose: 1 tab Sodium Chloride (Flush - Normal Saline) 10 ml IVF PRN PRN PRN Reason: Saline Flush Tamsulosin HCl (Flomax) 0.4 mg PO HS [facility] Last Admin: 10/13/18 21:46 Dose: 0.4 mg
[2018-10-14] MEDS: Acetaminophen 325 MG TAB PO PRN (01:08)
[2018-10-14] MEDS: MEROPENEM 1 GM/50 ML 1 GM in Premix Bag 1 BAG IVPB SCH ×3 (01:10→17:47)
[2018-10-14] MEDS: Saccharomyces boulardii 250 MG CAP PO SCH (08:36)
[2018-10-14] MEDS: Senokot S 8.6-50 MG TAB PO SCH ×2 (08:36→20:28)
[2018-10-14] MEDS: Potassium Chloride 20 MEQ TAB PO SCH (08:36)
[2018-10-14] MEDS: Furosemide 40 MG TAB PO SCH (08:36)
[2018-10-14] MEDS: Finasteride 5 MG TAB PO SCH (08:37)
[2018-10-14] MEDS: Aspirin 81 mg Enteric Coated Tablet PO SCH (08:37)
[2018-10-14] MEDS: Enoxaparin Sodium 40 MG/0.4 ML SYRINGE SC SCH (08:38)
[2018-10-14] MEDS: Multivit, Therapeutic 1 TAB PO SCH (08:38)
[2018-10-14 11:37] LABS: #Eosinphils 0.7 thou/uL (0.0-0.7); #Lymphocytes 0.5 thou/uL (1.20-3.40); #Monocytes 1.5 thou/uL (0.11-0.59); #Neutrophils 8.3 thou/uL (1.40-6.50); %Basophils 0.1 % (0.0-1.0); %Lymphocytes 4.4 % (21.0-51.0); %Neutrophils 75.5 % (42.0-75.0); Hemoglobin 11.6 g/dL (14.0-18.0); Mean Corpuscular HGB CONC 31.8 g/dL (32.0-36.0); Mean Corpuscular Hemoglobin 31.6 pg (27.0-31.0); Mean Corpuscular Volume 99.3 fL (78.0-98.0); Mean Platelet Volume 7.9 fL (7.4-10.4); Platelet Count 317 thou/uL (130-400); RBC Distribution Width 12.1 % (11.5-14.5); Red Blood Cell (RBC) Count 3.66 mill/uL (4.70-6.10)
[2018-10-14 11:46] LABS: ALT (SGPT) 59 U/L (8-55); AST (SGOT) 47 U/L (5-34); Albumin 2.6 g/dL (3.4-4.8); Alkaline Phosphatase 79 U/L (40-150); Anion Gap 12 mmol/L (10-20); BUN (Urea Nitrogen) 26 mg/dL (8.4-25.7); Bilirubin, Total 0.4 mg/dL (0.2-1.2); CRP (Inflammatory) 14.95 mg/dL (= or < 0.5); Calc. Creatinine Clearance 51 mL/min (70-130); Carbon Dioxide 29 mmol/L (23-31); Chloride 101 mmol/L (98-107); Estimated GFR-MDRD 63; Globulin 3.4 g/dL (2.4-3.5); Glucose 134 mg/dL (83-110); Potassium 3.9 mmol/L (3.5-5.1); Sodium 138 mmol/L (136-145)
--- NOTE | 2018-10-14 12:26 | PDOC.PN ---
- Subjective Encounter Start Date: 10/14/18 Encounter Start Time: 12:00 Patient seen and examined for Sepsis. No new complaints. Feels better. Worked with PT earlier. No overnight events - Objective Resuscitation Status - Order Detail: 10/10/18 15:23 Resuscitation Status Routine Resuscitation Status: DNAR: NO Resuscitation Discussed with: confirmed with spouse ANAY Reviewed: Yes Vital Signs & Weight: Vital Signs (12 hours) Temp Pulse Resp BP Pulse Ox 10/14/18 11:26 80 16 92 L 10/14/18 10:50 98.5 F 81 16 141/91 H 95 10/14/18 07:50 98.2 F 78 16 128/65 100 10/14/18 04:00 97.9 F 73 18 138/73 100 10/14/18 01:09 178/72 H 10/14/18 00:49 78 16 95 Weight Weight 160 lb 0.889 oz I&O: 10/13/18 10/14/18 10/15/18 06:59 06:59 06:59 Intake Total 1400 920 Balance 1400 920 Result Diagrams: 10/14/18 11:12 10/14/18 11:12 Phys Exam - Physical Examination Constitutional: NAD Respiratory: no wheezing few rales with rhonchi at bases Cardiovascular: RRR, no rub Gastrointestinal: soft, non-tender, positive bowel sounds Musculoskeletal: no edema Neurological: moves all 4 limbs Dx/Plan (1) General weakness Code(s): R53.1 - WEAKNESS Status: Acute (2) Toxic metabolic encephalopathy Code(s): G92 - TOXIC ENCEPHALOPATHY Status: Acute Comment: improving (3) Sepsis Code(s): A41.9 - SEPSIS, UNSPECIFIED ORGANISM Status: Acute Qualifiers: Sepsis type: sepsis due to unspecified organism Qualified Code(s): A41.9 - Sepsis, unspecified organism Comment: source? Prob Pneumonia ?Aspiration (4) Hypomagnesemia Code(s): E83.42 - HYPOMAGNESEMIA Status: Acute (5) BPH (benign prostatic hyperplasia) Code(s): N40.0 - BENIGN PROSTATIC HYPERPLASIA WITHOUT LOWER URINRY TRACT SYMP Status: Chronic (6) Other issues per previous notes - Plan cont current plan of care, continue antibiotics, PT/OT, DVT proph w/lovenox, DVT proph w/SCDs Reduce Lasix to 20 mg daily -: Cont Meropenem -: AM labs -: DC in AM if afebrile for 24 hrs -: Cont other meds as below Review of Systems - Review of Systems Respiratory: negative: Cough, Dry, Shortness of Breath, Hemoptysis, SOB with Excertion, Pleuritic Pain, Sputum, Wheezing Cardiovascular: negative: chest pain, palpitations, orthopnea, paroxysmal nocturnal dyspnea, edema, light headedness, other Gastrointestinal: negative: Nausea, Vomiting, Abdominal Pain, Diarrhea, Constipation, Melena, Hematochezia, Other - Medications/Allergies Allergies/Adverse Reactions: Allergies Allergy/AdvReac Type Severity Reaction Status Date / Time Penicillins Allergy Severe Verified 10/10/18 14:38 Medications: Current Medications Acetaminophen (Tylenol) 650 mg PO Q4H PRN PRN Reason: Headache/Fever/Mild Pain (1-3) Last Admin: 10/14/18 01:08 Dose: 650 mg Albuterol/Ipratropium (Duoneb) 3 ml NEB [id number] [facility] Last Admin: 10/14/18 11:26 Dose: 3 ml Albuterol/Ipratropium (Duoneb) 3 ml NEB [id number] PRN PRN Reason: SOB &/or Wheezing Aspirin (Ecotrin) 81 mg PO DAILY [facility] Last Admin: 10/14/18 08:37 Dose: 81 mg Calcium Carbonate (Tums) 1,000 mg PO Q4H PRN PRN Reason: Heartburn or Indigestion Enoxaparin Sodium (Lovenox) 40 mg SC 0900 [facility] Last Admin: 10/14/18 08:38 Dose: 40 mg Finasteride (Proscar) 5 mg PO DAILY [facility] Last Admin: 10/14/18 08:37 Dose: 5 mg Furosemide (Lasix) 20 mg PO DAILY [facility] Meropenem 1 gm/ Device 50 mls @ 100 mls/hr IVPB 0200,1000,1800 [facility] Last Admin: 10/14/18 09:05 Dose: 50 mls Miscellaneous Medication (Pharmacy To Dose) 1 each IVPB PRN PRN PRN Reason: Pharmacy to dose Multivitamins (Theragran) 1 tab PO DAILY [facility] Last Admin: 10/14/18 08:38 Dose: 1 tab Nitroglycerin (Nitrostat) 0.4 mg PO Q5MIN PRN PRN Reason: Chest Pain Ondansetron HCl (Zofran Odt) 4 mg PO Q6H PRN PRN Reason: Nausea/Vomiting Ondansetron HCl (Zofran) 4 mg IVP Q6H PRN PRN Reason: Nausea/Vomiting Potassium Chloride (K-Dur) 20 meq PO QAM[facility] Saccharomyces Boulardii (Florastor) 250 mg PO DAILY [facility] Last Admin: 10/14/18 08:36 Dose: 250 mg Senna/Docusate Sodium (Senokot S) 1 tab PO BID [facility] Last Admin: 10/14/18 08:36 Dose: 1 tab Sodium Chloride (Flush - Normal Saline) 10 ml IVF PRN PRN PRN Reason: Saline Flush Tamsulosin HCl (Flomax) 0.4 mg PO HS [facility] Last Admin: 10/13/18 21:46 Dose: 0.4 mg
[2018-10-14] MEDS ORDERED: Prevnar 13-Val Conj/PF 0.5 ML SYRINGE IM ONE (19:00)
[2018-10-14] MEDS: Tamsulosin HCl 0.4 MG CAP PO SCH (20:29)
[2018-10-15] MEDS: MEROPENEM 1 GM/50 ML 1 GM in Premix Bag 1 BAG IVPB SCH ×3 (01:26→17:47)
[2018-10-15] MEDS: Acetaminophen 325 MG TAB PO PRN ×2 (05:37→21:22)
[2018-10-15 07:41] LABS: Hemoglobin 10.9 g/dL (14.0-18.0); Mean Corpuscular HGB CONC 31.3 g/dL (32.0-36.0); Mean Corpuscular Hemoglobin 31.2 pg (27.0-31.0); Mean Corpuscular Volume 99.8 fL (78.0-98.0); Mean Platelet Volume 7.7 fL (7.4-10.4); Platelet Count 334 thou/uL (130-400); RBC Distribution Width 12.2 % (11.5-14.5); Red Blood Cell (RBC) Count 3.48 mill/uL (4.70-6.10); White Blood Cell (WBC) Count 9.6 thou/uL (4.8-10.8)
[2018-10-15 08:36] LABS: Anion Gap 13 mmol/L (10-20); BUN (Urea Nitrogen) 26 mg/dL (8.4-25.7); Calc. Creatinine Clearance 50 mL/min (70-130); Calcium 8.4 mg/dL (7.8-10.44); Carbon Dioxide 32 mmol/L (23-31); Chloride 99 mmol/L (98-107); Estimated GFR-MDRD 62; Glucose 123 mg/dL (83-110); Magnesium 1.6 mg/dL (1.6-2.6); Potassium 3.6 mmol/L (3.5-5.1); Sodium 140 mmol/L (136-145)
[2018-10-15 08:44] LABS: Band 15 % (5-11); Eosinophils 4 % (0-10); Lymphocytes 13 % (21-51); MDiff Complete? YES; Monocytes 11 % (0-10); Myelocyte 1 % (0-0); Neutrophil 51 % (42-75); RBC Morphology Normal; Reactive Lymphocytes 5 % (0-10)
[2018-10-15] MEDS ORDERED: Magnesium 2 GM/NS 0.9% 100 ML 2 GM in Premix Bag 1 BAG IVPB SCH (08:45)
[2018-10-15] MEDS ORDERED: Magnesium 2 GM/50 ML 2 GM in Premix Bag 1 BAG IVPB SCH (08:45)
[2018-10-15] MEDS: Finasteride 5 MG TAB PO SCH (09:12)
[2018-10-15] MEDS: Saccharomyces boulardii 250 MG CAP PO SCH (09:12)
[2018-10-15] MEDS: Potassium Chloride 20 MEQ TAB PO SCH (09:13)
[2018-10-15] MEDS: Multivit, Therapeutic 1 TAB PO SCH (09:13)
[2018-10-15] MEDS: Senokot S 8.6-50 MG TAB PO SCH ×2 (09:13→21:22)
[2018-10-15] MEDS: Furosemide 20 MG TAB PO SCH (09:14)
[2018-10-15] MEDS: Aspirin 81 mg Enteric Coated Tablet PO SCH (09:14)
[2018-10-15] MEDS: Enoxaparin Sodium 40 MG/0.4 ML SYRINGE SC SCH (09:14)
--- NOTE | 2018-10-15 14:16 | RAD ---
SINGLE VIEW OF THE CHEST: COMPARISON: 10/11/2018. HISTORY: Pneumonia and fever. FINDINGS: A single view of the chest shows a cardiomediastinal silhouette which is upper limits of normal in si ze with atherosclerotic calcifications in the aorta. The pacemaker is unchanged in position. There is no evidence of consolidation, mass, or pleural effusion. IMPRESSION: No evidence of acute cardiopulmonary disease. POS: TPC
[2018-10-15] MEDS: Tamsulosin HCl 0.4 MG CAP PO SCH (21:22)
[2018-10-15] MEDS: guaiFENesin ER 600 MG TAB PO SCH (21:22)
--- NOTE | 2018-10-15 23:19 | PDOC.PN ---
- Subjective Encounter Start Date: 10/15/18 Encounter Start Time: 11:30 Patient seen and examined for Sepsis/Gen weakness. Feels the same. No new complaints. No overnight events - Objective Resuscitation Status - Order Detail: 10/10/18 15:23 Resuscitation Status Routine Resuscitation Status: DNAR: NO Resuscitation Discussed with: confirmed with spouse ANAY Reviewed: Yes Vital Signs & Weight: Vital Signs (12 hours) Temp Pulse Resp BP Pulse Ox 10/15/18 23:10 92 L 10/15/18 23:09 82 18 92 L 10/15/18 20:32 101.0 F H 86 16 155/81 H 98 10/15/18 15:24 98.6 F 84 18 155/80 H 91 L 10/15/18 14:13 84 16 91 L 10/15/18 11:31 98.6 F 84 17 147/72 H 91 L Weight Weight 160 lb 0.889 oz I&O: 10/14/18 10/15/18 10/16/18 06:59 06:59 06:59 Intake Total 920 1250 640 Output Total 2 Balance 920 1248 640 Result Diagrams: 10/15/18 06:59 10/15/18 06:59 Phys Exam - Physical Examination Constitutional: NAD Respiratory: no wheezing, no rhonchi few rales as below Cardiovascular: RRR, no rub Gastrointestinal: soft, non-tender, positive bowel sounds Musculoskeletal: no edema Neurological: moves all 4 limbs Dx/Plan (1) General weakness Code(s): R53.1 - WEAKNESS Status: Acute (2) Toxic metabolic encephalopathy Code(s): G92 - TOXIC ENCEPHALOPATHY Status: Acute Comment: improving (3) Sepsis Code(s): A41.9 - SEPSIS, UNSPECIFIED ORGANISM Status: Acute Qualifiers: Sepsis type: sepsis due to unspecified organism Qualified Code(s): A41.9 - Sepsis, unspecified organism Comment: source? Prob Pneumonia ?Aspiration (4) Hypomagnesemia Code(s): E83.42 - HYPOMAGNESEMIA Status: Acute (5) BPH (benign prostatic hyperplasia) Code(s): N40.0 - BENIGN PROSTATIC HYPERPLASIA WITHOUT LOWER URINRY TRACT SYMP Status: Chronic (6) Other issues per previous notes - Plan DVT proph w/lovenox, DVT proph w/SCDs Cont Meropenem -: CXR due to persistent fever -: Case d/w Dr Koenig who recomm. to cont Atbx -: AM labs -: Cont other meds as below, 2 gm IV Magnessium Review of Systems - Review of Systems Respiratory: negative: Cough, Dry, Shortness of Breath, Hemoptysis, SOB with Excertion, Pleuritic Pain, Sputum, Wheezing Cardiovascular: negative: chest pain, palpitations, orthopnea, paroxysmal nocturnal dyspnea, edema, light headedness, other Gastrointestinal: negative: Nausea, Vomiting, Abdominal Pain, Diarrhea, Constipation, Melena, Hematochezia, Other - Medications/Allergies Allergies/Adverse Reactions: Allergies Allergy/AdvReac Type Severity Reaction Status Date / Time Penicillins Allergy Severe Verified 10/10/18 14:38 Medications: Current Medications Acetaminophen (Tylenol) 650 mg PO Q4H PRN PRN Reason: Headache/Fever/Mild Pain (1-3) Last Admin: 10/15/18 21:22 Dose: 650 mg Albuterol/Ipratropium (Duoneb) 3 ml NEB [id number] [facility] Last Admin: 10/15/18 23:09 Dose: 3 ml Albuterol/Ipratropium (Duoneb) 3 ml NEB [id number] PRN PRN Reason: SOB &/or Wheezing Aspirin (Ecotrin) 81 mg PO DAILY [facility] Last Admin: 10/15/18 09:14 Dose: 81 mg Calcium Carbonate (Tums) 1,000 mg PO Q4H PRN PRN Reason: Heartburn or Indigestion Enoxaparin Sodium (Lovenox) 40 mg SC 0900 [facility] Last Admin: 10/15/18 09:14 Dose: 40 mg Finasteride (Proscar) 5 mg PO DAILY [facility] Last Admin: 10/15/18 09:12 Dose: 5 mg Furosemide (Lasix) 20 mg PO DAILY [facility] Last Admin: 10/15/18 09:14 Dose: 20 mg Guaifenesin (Mucinex) 600 mg PO Q12HR [facility] Last Admin: 10/15/18 21:22 Dose: 600 mg Meropenem 1 gm/ Device 50 mls @ 100 mls/hr IVPB 0200,1000,1800 [facility] Last Admin: 10/15/18 17:47 Dose: 50 mls Miscellaneous Medication (Pharmacy To Dose) 1 each IVPB PRN PRN PRN Reason: Pharmacy to dose Multivitamins (Theragran) 1 tab PO DAILY [facility] Last Admin: 10/15/18 09:13 Dose: 1 tab Nitroglycerin (Nitrostat) 0.4 mg PO Q5MIN PRN PRN Reason: Chest Pain Ondansetron HCl (Zofran Odt) 4 mg PO Q6H PRN PRN Reason: Nausea/Vomiting Ondansetron HCl (Zofran) 4 mg IVP Q6H PRN PRN Reason: Nausea/Vomiting Potassium Chloride (K-Dur) 20 meq PO QAM-WM [facility] Last Admin: 10/15/18 09:13 Dose: 20 meq Saccharomyces Boulardii (Florastor) 250 mg PO DAILY [facility] Last Admin: 10/15/18 09:12 Dose: 250 mg Senna/Docusate Sodium (Senokot S) 1 tab PO BID [facility] Last Admin: 10/15/18 21:22 Dose: 1 tab Sodium Chloride (Flush - Normal Saline) 10 ml IVF PRN PRN PRN Reason: Saline Flush Last Admin: 10/14/18 17:52 Dose: 10 ml Tamsulosin HCl (Flomax) 0.4 mg PO HS [facility] Last Admin: 10/15/18 21:22 Dose: 0.4 mg
[2018-10-16] MEDS: MEROPENEM 1 GM/50 ML 1 GM in Premix Bag 1 BAG IVPB SCH ×2 (01:52→08:57)
[2018-10-16 07:48] LABS: #Lymphocytes 0.6 thou/uL (1.20-3.40); #Monocytes 1.7 thou/uL (0.11-0.59); #Neutrophils 9.9 thou/uL (1.40-6.50); %Basophils 0.2 % (0.0-1.0); %Eosinophils 7.7 % (0.0-10.0); %Lymphocytes 4.3 % (21.0-51.0); %Monocytes 12.8 % (0.0-10.0); Hemoglobin 11.7 g/dL (14.0-18.0); Mean Corpuscular HGB CONC 31.8 g/dL (32.0-36.0); Mean Corpuscular Hemoglobin 31.8 pg (27.0-31.0); Mean Platelet Volume 7.3 fL (7.4-10.4); Platelet Count 405 thou/uL (130-400); Red Blood Cell (RBC) Count 3.67 mill/uL (4.70-6.10); White Blood Cell (WBC) Count 13.2 thou/uL (4.8-10.8)
[2018-10-16 08:12] LABS: ALT (SGPT) 81 U/L (8-55); AST (SGOT) 69 U/L (5-34); Albumin 2.6 g/dL (3.4-4.8); Alkaline Phosphatase 86 U/L (40-150); Anion Gap 15 mmol/L (10-20); BUN (Urea Nitrogen) 37 mg/dL (8.4-25.7); Bilirubin, Total 0.5 mg/dL (0.2-1.2); Calc. Creatinine Clearance 48 mL/min (70-130); Calcium 8.9 mg/dL (7.8-10.44); Carbon Dioxide 30 mmol/L (23-31); Chloride 98 mmol/L (98-107); Estimated GFR-MDRD 59; Globulin 3.3 g/dL (2.4-3.5); Glucose 109 mg/dL (83-110); Lipase 16 U/L (8-78); Potassium 3.8 mmol/L (3.5-5.1); Protein, Total 5.9 g/dL (5.8-8.1); Sodium 139 mmol/L (136-145)
[2018-10-16] MEDS: Saccharomyces boulardii 250 MG CAP PO SCH (08:48)
[2018-10-16] MEDS: Potassium Chloride 20 MEQ TAB PO SCH (08:48)
[2018-10-16] MEDS: Senokot S 8.6-50 MG TAB PO SCH (08:49)
[2018-10-16] MEDS: Multivit, Therapeutic 1 TAB PO SCH (08:49)
[2018-10-16] MEDS: guaiFENesin ER 600 MG TAB PO SCH ×2 (08:49→19:54)
[2018-10-16] MEDS: Enoxaparin Sodium 40 MG/0.4 ML SYRINGE SC SCH (08:49)
[2018-10-16] MEDS: Furosemide 20 MG TAB PO SCH (08:49)
[2018-10-16] MEDS: Finasteride 5 MG TAB PO SCH (08:49)
[2018-10-16] MEDS: Aspirin 81 mg Enteric Coated Tablet PO SCH (08:49)
--- NOTE | 2018-10-16 12:46 | PDOC.PN ---
- Subjective Encounter Start Date: 10/16/18 Encounter Start Time: 12:00 Patient seen and examined for Sepsis. Sitting on chair. No CP/Cough. No new complaints. No overnight events - Objective Resuscitation Status - Order Detail: 10/10/18 15:23 Resuscitation Status Routine Resuscitation Status: DNAR: NO Resuscitation Discussed with: confirmed with spouse MAR Reviewed: Yes Vital Signs & Weight: Vital Signs (12 hours) Temp Pulse Resp BP Pulse Ox 10/16/18 11:32 98.6 F 86 18 152/80 H 98 10/16/18 10:31 88 18 98 10/16/18 08:00 98.5 F 86 19 164/77 H 98 10/16/18 06:11 86 14 97 10/16/18 04:00 98.5 F 86 20 161/85 H 98 10/16/18 02:20 92 L Weight Weight 160 lb 0.889 oz I&O: 10/15/18 10/16/18 10/17/18 06:59 06:59 06:59 Intake Total 1250 900 240 Output Total 2 Balance 1248 900 240 Result Diagrams: 10/16/18 07:30 10/16/18 07:30 Radiology Reviewed by me: Yes (CXR - no new infiltrate) Phys Exam - Physical Examination Constitutional: NAD Sitting on chair Respiratory: no wheezing, no rhonchi few rales at bases Cardiovascular: RRR, no rub Gastrointestinal: soft, non-tender, positive bowel sounds Musculoskeletal: no edema Neurological: moves all 4 limbs Dx/Plan (1) General weakness Code(s): R53.1 - WEAKNESS Status: Acute (2) Toxic metabolic encephalopathy Code(s): G92 - TOXIC ENCEPHALOPATHY Status: Acute Comment: improving (3) Sepsis Code(s): A41.9 - SEPSIS, UNSPECIFIED ORGANISM Status: Acute Qualifiers: Sepsis type: sepsis due to unspecified organism Qualified Code(s): A41.9 - Sepsis, unspecified organism Comment: source? Prob Pneumonia ?Aspiration (4) Hypomagnesemia Code(s): E83.42 - HYPOMAGNESEMIA Status: Acute (5) BPH (benign prostatic hyperplasia) Code(s): N40.0 - BENIGN PROSTATIC HYPERPLASIA WITHOUT LOWER URINRY TRACT SYMP Status: Chronic (6) Other issues per previous notes - Plan cont current plan of care, plan discussed w/ family, PT/OT, social media strategist, incentive spirometry, DVT proph w/lovenox, DVT proph w/SCDs DC Meropenem per ID -: AM labs -: Cont current meds as below -: Case d/w Dr Koenig Review of Systems - Review of Systems Respiratory: negative: Cough, Dry, Shortness of Breath, Hemoptysis, SOB with Excertion, Pleuritic Pain, Sputum, Wheezing Cardiovascular: negative: chest pain, palpitations, orthopnea, paroxysmal nocturnal dyspnea, edema, light headedness, other Gastrointestinal: negative: Nausea, Vomiting, Abdominal Pain, Diarrhea, Constipation, Melena, Hematochezia, Other - Medications/Allergies Allergies/Adverse Reactions: Allergies Allergy/AdvReac Type Severity Reaction Status Date / Time Penicillins Allergy Severe Verified 10/10/18 14:38 Medications: Current Medications Acetaminophen (Tylenol) 650 mg PO Q4H PRN PRN Reason: Headache/Fever/Mild Pain (1-3) Last Admin: 10/15/18 21:22 Dose: 650 mg Albuterol/Ipratropium (Duoneb) 3 ml NEB [id number] [facility] Last Admin: 10/16/18 10:31 Dose: 3 ml Albuterol/Ipratropium (Duoneb) 3 ml NEB [id number] PRN PRN Reason: SOB &/or Wheezing Aspirin (Ecotrin) 81 mg PO DAILY [facility] Last Admin: 10/16/18 08:49 Dose: 81 mg Calcium Carbonate (Tums) 1,000 mg PO Q4H PRN PRN Reason: Heartburn or Indigestion Enoxaparin Sodium (Lovenox) 40 mg SC 0900 [facility] Last Admin: 10/16/18 08:49 Dose: 40 mg Finasteride (Proscar) 5 mg PO DAILY [facility] Last Admin: 10/16/18 08:49 Dose: 5 mg Guaifenesin (Mucinex) 600 mg PO Q12HR [facility] Last Admin: 10/16/18 08:49 Dose: 600 mg Miscellaneous Medication (Pharmacy To Dose) 1 each IVPB PRN PRN PRN Reason: Pharmacy to dose Multivitamins (Theragran) 1 tab PO DAILY [facility] Last Admin: 10/16/18 08:49 Dose: 1 tab Nitroglycerin (Nitrostat) 0.4 mg PO Q5MIN PRN PRN Reason: Chest Pain Ondansetron HCl (Zofran Odt) 4 mg PO Q6H PRN PRN Reason: Nausea/Vomiting Ondansetron HCl (Zofran) 4 mg IVP Q6H PRN PRN Reason: Nausea/Vomiting Saccharomyces Boulardii (Florastor) 250 mg PO DAILY [facility] Last Admin: 10/16/18 08:48 Dose: 250 mg Senna/Docusate Sodium (Senokot S) 1 tab PO BID [facility] Last Admin: 10/16/18 08:49 Dose: 1 tab Sodium Chloride (Flush - Normal Saline) 10 ml IVF PRN PRN PRN Reason: Saline Flush Last Admin: 10/14/18 17:52 Dose: 10 ml Tamsulosin HCl (Flomax) 0.4 mg PO HS [facility] Last Admin: 10/15/18 21:22 Dose: 0.4 mg
--- NOTE | 2018-10-16 14:30 | PRG ---
DATE OF SERVICE: 10/16/2018 SUBJECTIVE: Mr. Stewart had a fever again. He is reading magazine and does not seem to be in any distress. Denies headaches. No cough. No abdominal pain or chest pain. No back pain. Of course, his answers are very limited because of his Parkinson disease and some cognitive dysfunction. PHYSICAL EXAMINATION: VITAL SIGNS: Temperature elevation was 101, it was yesterday at 8:00 p.m. and he has been afebrile since. GENERAL: Apparently had some diarrhea according to the nurse. HEENT: Ocular movements conjugate. Oral cavity was okay. LUNGS: Fairly few crackles here and there, but not very prominent mostly at the bases. No wheezing. HEART: S1 and S2. Regular rate. No S3 or S4. ABDOMEN: Soft, not distended. Question of bladder distention. LABORATORY DATA: White cell count is up to 13.2, hemoglobin 11, platelets 405, 75% neutrophils. Creatinine 1.17. AST 69, ALT 81. LABORATORY DATA AND DIAGNOSTIC STUDIES: Had repeat chest x-ray and showed no evidence of acute cardiopulmonary disease. Chest, abdomen and pelvis CT; colonic diverticulosis, but no diverticulitis, hypodensity in the kidney, mild bilateral pleural effusions, atelectases, compression of T11. Blood cultures with Corynebacterium, which is contaminant and respiratory virus PCR panel negative. ASSESSMENT AND DISCUSSION: Parkinson disease with prior cerebrovascular accident, fever, weakness, lethargy, abnormal lung examination, large prostate gland, possible urinary retention. He has had recrudescence of fever and now has diarrhea. We will withhold the antimicrobial therapy and check his stool for Clostridium difficile and check postvoid residual bladder volumes again. Job ID: [id number]
--- NOTE | 2018-10-16 15:08 | EKG ---
Test Reason : WEAKNESS Blood Pressure : / mmHG Vent. Rate : 070 BPM Atrial Rate : 070 BPM P-R Int : 154 ms QRS Dur : 086 ms QT Int : 390 ms P-R-T Axes : 041 -10 031 degrees QTc Int : 421 ms Normal sinus rhythm Possible Left atrial enlargement Left ventricular hypertrophy Motion artifact in V1 Abnormal ECG Confirmed by LANA Akbar, ANTHONY ([id number]), market editor OBDULIO WILLOUGHBY ([id number]) on 10/16/2018 3:08:29 PM Referred By: YAZ Confirmed By:ANTHONY SCHWARTZ M.D.
[2018-10-16] MEDS: Acetaminophen 325 MG TAB PO PRN (19:55)
[2018-10-16] MEDS: Tamsulosin HCl 0.4 MG CAP PO SCH (19:55)
[2018-10-17 07:09] LABS: #Eosinphils 1.1 thou/uL (0.0-0.7); #Lymphocytes 0.7 thou/uL (1.20-3.40); #Monocytes 1.3 thou/uL (0.11-0.59); #Neutrophils 8.5 thou/uL (1.40-6.50); %Basophils 0.4 % (0.0-1.0); %Eosinophils 9.2 % (0.0-10.0); %Lymphocytes 6.3 % (21.0-51.0); %Monocytes 11.2 % (0.0-10.0); Hemoglobin 10.7 g/dL (14.0-18.0); Mean Corpuscular HGB CONC 32.3 g/dL (32.0-36.0); Mean Corpuscular Hemoglobin 32.2 pg (27.0-31.0); Mean Corpuscular Volume 99.6 fL (78.0-98.0); Mean Platelet Volume 7.9 fL (7.4-10.4); Platelet Count 411 thou/uL (130-400); RBC Distribution Width 12.2 % (11.5-14.5); Red Blood Cell (RBC) Count 3.33 mill/uL (4.70-6.10); White Blood Cell (WBC) Count 11.6 thou/uL (4.8-10.8)
[2018-10-17 07:14] LABS: ALT (SGPT) 93 U/L (8-55); AST (SGOT) 81 U/L (5-34); Albumin 2.4 g/dL (3.4-4.8); Alkaline Phosphatase 87 U/L (40-150); Anion Gap 12 mmol/L (10-20); BUN (Urea Nitrogen) 41 mg/dL (8.4-25.7); Bilirubin, Total 0.4 mg/dL (0.2-1.2); Calc. Creatinine Clearance 53 mL/min (70-130); Calcium 8.5 mg/dL (7.8-10.44); Carbon Dioxide 30 mmol/L (23-31); Chloride 99 mmol/L (98-107); Estimated GFR-MDRD 67; Globulin 3.1 g/dL (2.4-3.5); Glucose 103 mg/dL (83-110); Magnesium 1.8 mg/dL (1.6-2.6); Potassium 3.9 mmol/L (3.5-5.1); Protein, Total 5.5 g/dL (5.8-8.1); Sodium 137 mmol/L (136-145)
[2018-10-17] MEDS: Docusate 100 MG CAP PO SCH (09:14)
[2018-10-17] MEDS: guaiFENesin ER 600 MG TAB PO SCH ×2 (09:15→20:00)
[2018-10-17] MEDS: Aspirin 81 mg Enteric Coated Tablet PO SCH (09:15)
[2018-10-17] MEDS: Enoxaparin Sodium 40 MG/0.4 ML SYRINGE SC SCH (09:15)
[2018-10-17] MEDS: Finasteride 5 MG TAB PO SCH (09:15)
[2018-10-17] MEDS: Saccharomyces boulardii 250 MG CAP PO SCH (09:15)
[2018-10-17] MEDS: Multivit, Therapeutic 1 TAB PO SCH (09:15)
--- NOTE | 2018-10-17 14:29 | PDOC.PN ---
- Subjective Encounter Start Date: 10/17/18 Encounter Start Time: 09:00 Patient seen and examined for Sepsis. No new complaints. No overnight events - Objective Resuscitation Status - Order Detail: 10/10/18 15:23 Resuscitation Status Routine Resuscitation Status: DNAR: NO Resuscitation Discussed with: confirmed with spouse ANAY Reviewed: Yes Vital Signs & Weight: Vital Signs (12 hours) Temp Pulse Resp BP Pulse Ox 10/17/18 11:25 99.8 F H 86 18 150/75 H 93 L 10/17/18 08:00 93 L 10/17/18 07:48 98.0 F 89 18 154/74 H 93 L 10/17/18 06:03 88 14 94 L 10/17/18 02:36 88 12 Weight Weight 160 lb 0.889 oz I&O: 10/16/18 10/17/18 10/18/18 06:59 06:59 06:59 Intake Total 900 480 240 Balance 900 480 240 Result Diagrams: 10/17/18 06:09 10/17/18 06:09 Additional Labs: Microbiology 10/16/18 Unknown Stool C. difficile GDH Antigen & Toxins - Final 10/10/18 16:20 Nasopharyngeal swab Respiratory Panel (PCR) - Final 10/10/18 12:04 Nasal swab Influenza Types A,B Direct EIA - Final 10/10/18 11:20 Urine Straight Catheter Urine Culture - Final NO GROWTH AT 48 HOURS 10/10/18 10:29 Venous blood - Left Hand Blood Culture - Final NO GROWTH IN 5 DAYS 10/10/18 10:28 Venous blood - Right Arm Blood Culture - Final Presumptive Corynebacterium sp 10/10/18 10:28 Venous blood - Right Arm Blood Culture - Preliminary Gram Positive N[place]or Phys Exam - Physical Examination Constitutional: NAD Respiratory: no wheezing, no rhonchi Cardiovascular: RRR, no rub Gastrointestinal: soft, non-tender, positive bowel sounds Musculoskeletal: no edema Neurological: moves all 4 limbs Dx/Plan (1) General weakness Code(s): R53.1 - WEAKNESS Status: Acute (2) Toxic metabolic encephalopathy Code(s): G92 - TOXIC ENCEPHALOPATHY Status: Acute Comment: improving (3) Sepsis Code(s): A41.9 - SEPSIS, UNSPECIFIED ORGANISM Status: Acute Qualifiers: Sepsis type: sepsis due to unspecified organism Qualified Code(s): A41.9 - Sepsis, unspecified organism Comment: source? (4) Hypomagnesemia Code(s): E83.42 - HYPOMAGNESEMIA Status: Acute (5) BPH (benign prostatic hyperplasia) Code(s): N40.0 - BENIGN PROSTATIC HYPERPLASIA WITHOUT LOWER URINRY TRACT SYMP Status: Chronic (6) Other issues per previous notes - Plan cont current plan of care, plan discussed w/ family, DVT proph w/lovenox, DVT proph w/SCDs No souce for fever identified. Case d/w Dr Koenig -: Dr Koenig rec to dc Atbx and monitor overnight -: AM labs -: DC in 24 hr to rehab if afebrile. -: Cont other meds as below Review of Systems - Review of Systems Respiratory: negative: Cough, Dry, Shortness of Breath, Hemoptysis, SOB with Excertion, Pleuritic Pain, Sputum, Wheezing Cardiovascular: negative: chest pain, palpitations, orthopnea, paroxysmal nocturnal dyspnea, edema, light headedness, other - Medications/Allergies Allergies/Adverse Reactions: Allergies Allergy/AdvReac Type Severity Reaction Status Date / Time Penicillins Allergy Severe Verified 10/10/18 14:38 Medications: Current Medications Acetaminophen (Tylenol) 650 mg PO Q4H PRN PRN Reason: Headache/Fever/Mild Pain (1-3) Last Admin: 10/16/18 19:55 Dose: 650 mg Albuterol/Ipratropium (Duoneb) 3 ml NEB [id number] PRN PRN Reason: SOB &/or Wheezing Aspirin (Ecotrin) 81 mg PO DAILY [facility] Last Admin: 10/17/18 09:15 Dose: 81 mg Calcium Carbonate (Tums) 1,000 mg PO Q4H PRN PRN Reason: Heartburn or Indigestion Docusate Sodium (Colace) 100 mg PO DAILY [facility] Last Admin: 10/17/18 09:14 Dose: Not Given Enoxaparin Sodium (Lovenox) 40 mg SC 0900 [facility] Last Admin: 10/17/18 09:15 Dose: 40 mg Finasteride (Proscar) 5 mg PO DAILY [facility] Last Admin: 10/17/18 09:15 Dose: 5 mg Guaifenesin (Mucinex) 600 mg PO Q12HR [facility] Last Admin: 10/17/18 09:15 Dose: 600 mg Miscellaneous Medication (Pharmacy To Dose) 1 each IVPB PRN PRN PRN Reason: Pharmacy to dose Multivitamins (Theragran) 1 tab PO DAILY [facility] Last Admin: 10/17/18 09:15 Dose: 1 tab Nitroglycerin (Nitrostat) 0.4 mg PO Q5MIN PRN PRN Reason: Chest Pain Ondansetron HCl (Zofran Odt) 4 mg PO Q6H PRN PRN Reason: Nausea/Vomiting Ondansetron HCl (Zofran) 4 mg IVP Q6H PRN PRN Reason: Nausea/Vomiting Saccharomyces Boulardii (Florastor) 250 mg PO DAILY [facility] Last Admin: 10/17/18 09:15 Dose: 250 mg Sodium Chloride (Flush - Normal Saline) 10 ml IVF PRN PRN PRN Reason: Saline Flush Last Admin: 10/14/18 17:52 Dose: 10 ml Tamsulosin HCl (Flomax) 0.4 mg PO HS [facility] Last Admin: 10/16/18 19:55 Dose: 0.4 mg
[2018-10-17] MEDS: Acetaminophen 325 MG TAB PO PRN (20:00)
[2018-10-17] MEDS: Tamsulosin HCl 0.4 MG CAP PO SCH (20:00)
[2018-10-18 07:04] LABS: #Lymphocytes 0.7 thou/uL (1.20-3.40); #Monocytes 1.3 thou/uL (0.11-0.59); #Neutrophils 8.8 thou/uL (1.40-6.50); %Basophils 0.2 % (0.0-1.0); %Eosinophils 8.7 % (0.0-10.0); %Lymphocytes 6.2 % (21.0-51.0); %Monocytes 10.7 % (0.0-10.0); %Neutrophils 74.3 % (42.0-75.0); Hemoglobin 10.6 g/dL (14.0-18.0); Mean Corpuscular HGB CONC 32.3 g/dL (32.0-36.0); Mean Corpuscular Hemoglobin 32.1 pg (27.0-31.0); Mean Corpuscular Volume 99.4 fL (78.0-98.0); Mean Platelet Volume 7.2 fL (7.4-10.4); Platelet Count 459 thou/uL (130-400); Red Blood Cell (RBC) Count 3.28 mill/uL (4.70-6.10); White Blood Cell (WBC) Count 11.9 thou/uL (4.8-10.8)
[2018-10-18 07:21] LABS: Anion Gap 14 mmol/L (10-20); BUN (Urea Nitrogen) 38 mg/dL (8.4-25.7); Calc. Creatinine Clearance 57 mL/min (70-130); Calcium 8.4 mg/dL (7.8-10.44); Carbon Dioxide 26 mmol/L (23-31); Chloride 101 mmol/L (98-107); Estimated GFR-MDRD 72; Glucose 100 mg/dL (83-110); Potassium 3.7 mmol/L (3.5-5.1); Sodium 137 mmol/L (136-145)
[2018-10-18] MEDS: Docusate 100 MG CAP PO SCH (08:50)
[2018-10-18] MEDS: Aspirin 81 mg Enteric Coated Tablet PO SCH (09:02)
[2018-10-18] MEDS: Finasteride 5 MG TAB PO SCH (09:02)
[2018-10-18] MEDS: guaiFENesin ER 600 MG TAB PO SCH ×2 (09:02→20:47)
[2018-10-18] MEDS: Saccharomyces boulardii 250 MG CAP PO SCH (09:02)
[2018-10-18] MEDS: Multivit, Therapeutic 1 TAB PO SCH (09:02)
[2018-10-18] MEDS: Enoxaparin Sodium 40 MG/0.4 ML SYRINGE SC SCH (09:03)
[2018-10-18] MEDS: Acetaminophen 325 MG TAB PO PRN ×2 (09:09→20:53)
--- NOTE | 2018-10-18 14:42 | PRG ---
DATE OF SERVICE: 10/18/2018 SUBJECTIVE: Mr. Stewart is still having intermittent low-grade temp elevations, not breathing deeply because of his Parkinson disease, difficulty mobilizing secretions. I had him sit up in the bed with the help from the nurse and when I mobilized him, he started coughing quite prominently and obviously had secretions in the upper airways, which he could not bring up. No abdominal pain. No more diarrhea. No genitourinary symptoms. OBJECTIVE: VITAL SIGNS: T-max 101, currently 99.4, other vital signs are not remarkable. O2 saturation 94%. GENERAL: Awake, appears in no distress with the hypomotility typical of Parkinson disease. His excursions are very limited. He really cannot cough, cannot take deep breaths. NECK: Stiff neck to all directions. EXTREMITIES: Stiffness in all extremities. LUNGS: He has baseline wheezing and a few crackles at the bases. HEART: S1, S2. Regular rate. ABDOMEN: Soft, not distended or tender. No bladder distention. LABORATORY DATA: White cell count 11.9, hemoglobin 10.6, platelets 459, 74% neutrophils. Creatinine 0.99. Microbiology negative with C. diff. Postvoid residual is okay. ASSESSMENT AND DISCUSSION: Parkinson disease with prior cerebrovascular accident and likely atelectasis with inability to mobilize secretions. We will repeat CT of chest and consider a finishing lab technician consultation or respiratory therapy consultation to, maybe will benefit from those devices that vibrate the chest to mobilize his secretions and decrease the amount of likely mucus plugging that he is experiencing. I do not see other areas of involvement at this point in time beyond this respiratory issue. Job ID: [id number]
--- NOTE | 2018-10-18 15:20 | CT ---
CHEST CT WITHOUT CONTRAST: DATE: 10/18/2018. COMPARISON: 10/12/2018. HISTORY: Abnormal chest examination. TECHNIQUE: Axial CT imaging at 5 mm intervals from the thoracic inlet through the upper abdomen without contrast . Coronal reformatted imaging obtained. FINDINGS: The lack of contrast limits assessment of the imaged viscera, the vascular structures, and for lympha denopathy. Dual-lead transvenous pacing device present, inserted via a left subclavian approach. There is exten sive atherosclerotic calcification of the thoracic aorta and the coronary arteries. Limited assessme nt of the upper abdomen demonstrates scattered atherosclerotic calcification of the imaged abdominal aorta and its branches. There is no significant pericardial or mediastinal fluid. There are small bilateral pleural effusion s, similar when compared to the 10/12/2018 examination. There is partial consolidation/collapse of bot h lower lobes, right greater than left, also similar when compared to the prior examination. There i s no pneumothorax noted. There is minimal linear density in the lingula inferiorly, also stable. Review of the osseous structures demonstrates mild superior end plate irregularity at T10 on the basi s of age-indeterminate fracture, stable as well. No acute osseous abnormality is evident. IMPRESSION: 1. Stable bilateral lower lobe pleural and parenchymal opacity. Findings suggest pulmonary edema or infectious pneumonitis. Followup radiograph chest following treatment to document resolution advise d. 2. Extensive atherosclerotic disease. POS: NOA
--- NOTE | 2018-10-18 15:56 | PDOC.PN ---
- Subjective Encounter Start Date: 10/18/18 Encounter Start Time: 15:40 Subjective: f/u for febrile episodes likely related to retained chest secretions -: awaiting chest physiotherapy. No new issues reported and pt worked -: with PT today. - Objective Resuscitation Status - Order Detail: 10/10/18 15:23 Resuscitation Status Routine Resuscitation Status: DNAR: NO Resuscitation Discussed with: confirmed with spouse MAR Reviewed: Yes Vital Signs & Weight: Vital Signs (12 hours) Temp Pulse Resp BP Pulse Ox 10/18/18 11:46 99.4 F 71 18 131/63 94 L 10/18/18 08:00 101.0 F H 78 18 165/63 H 93 L 10/18/18 04:30 98.5 F 80 20 131/61 93 L Weight Weight 160 lb 0.889 oz I&O: 10/17/18 10/18/18 10/19/18 06:59 06:59 06:59 Intake Total 480 730 180 Balance 480 730 180 Result Diagrams: 10/18/18 06:44 10/18/18 06:44 Radiology Reviewed by me: Yes (Chest CT - bilat infiltrates, ?pneumonitis) Phys Exam - Physical Examination Constitutional: NAD alert, nods to questions HEENT: PERRLA, sclera anicteric, oral pharynx no lesions Neck: no nodes, no JVD, supple, full ROM scattered coarse sounds in bases Respiratory: no wheezing S1, S2 Cardiovascular: RRR, no significant murmur, no rub, gallop Gastrointestinal: soft, non-tender, no distention, positive bowel sounds Musculoskeletal: no edema, pulses present Neurological: normal sensation, moves all 4 limbs Skin: normal turgor, cap refill <2 seconds Dx/Plan (1) Febrile illness Code(s): R50.9 - FEVER, UNSPECIFIED Status: Acute Comment: Likely due to retained and uncleared secretions, chest physiotherapy (2) General weakness Code(s): R53.1 - WEAKNESS Status: Chronic Comment: Likely multifactorial, inactivity, Parkinson's, PT for mobilization, Rehab transfer when stable (3) Toxic metabolic encephalopathy Code(s): G92 - TOXIC ENCEPHALOPATHY Status: Acute Comment: Stabilizing, resolving (4) Parkinson disease Code(s): G20 - PARKINSON'S DISEASE Status: Chronic Comment: ? medical mgmt, PT for mobilization - Plan plan discussed w/ family, PT/OT, hospice social worker, respiratory therapy, out of bed/ambulate, DVT proph w/SCDs Stable currently -: Chest Physiotherapy TID -: Continue Duonebs, sit upright -: PT for mobilization -: Likely transfer to rehab in 24-48h * .
[2018-10-18] MEDS: Tamsulosin HCl 0.4 MG CAP PO SCH (20:59)
[2018-10-19] MEDS: Finasteride 5 MG TAB PO SCH (08:40)
[2018-10-19] MEDS: Aspirin 81 mg Enteric Coated Tablet PO SCH (08:40)
[2018-10-19] MEDS: Saccharomyces boulardii 250 MG CAP PO SCH (08:40)
[2018-10-19] MEDS: Docusate 100 MG CAP PO SCH (08:40)
[2018-10-19] MEDS: Enoxaparin Sodium 40 MG/0.4 ML SYRINGE SC SCH (08:40)
[2018-10-19] MEDS: Multivit, Therapeutic 1 TAB PO SCH (08:41)
[2018-10-19] MEDS: guaiFENesin ER 600 MG TAB PO SCH (08:43)
--- NOTE | 2018-10-19 13:03 | PDOC.PN ---
- Subjective Encounter Start Date: 10/19/18 Encounter Start Time: 12:50 Subjective: f/u for recurrent febrile episodes suspected due to retained pulmonary -: secretions. Received some mild physiotherapy per RT but not percussion. - Objective Resuscitation Status - Order Detail: 10/10/18 15:23 Resuscitation Status Routine Resuscitation Status: DNAR: NO Resuscitation Discussed with: confirmed with spouse ANAY Reviewed: Yes Vital Signs & Weight: Vital Signs (12 hours) Temp Pulse Resp BP Pulse Ox 10/19/18 11:30 98.7 F 76 18 154/76 H 99 10/19/18 08:00 97.8 F 72 18 149/70 H 98 10/19/18 07:23 95 10/19/18 07:20 74 16 95 10/19/18 05:36 98.5 F 72 16 169/72 H 96 Weight Weight 160 lb 0.889 oz I&O: 10/18/18 10/19/18 10/20/18 06:59 06:59 06:59 Intake Total 730 660 240 Balance 730 660 240 Result Diagrams: 10/18/18 06:44 10/18/18 06:44 Additional Labs: Microbiology 10/16/18 Unknown Stool C. difficile GDH Antigen & Toxins - Final Laboratory Tests 10/16/18 10/16/18 10/17/18 07:30 07:30 06:09 WBC 13.2 H Creatinine 1.17 1.06 10/17/18 06:09 WBC 11.6 H Creatinine Phys Exam - Physical Examination Constitutional: NAD alert, responsive HEENT: PERRLA, sclera anicteric, oral pharynx no lesions Neck: no nodes, no JVD, supple, full ROM few scatttered coarse sounds Respiratory: no wheezing S1, S2 Cardiovascular: RRR, no significant murmur, no rub, gallop Gastrointestinal: soft, non-tender, no distention, positive bowel sounds Musculoskeletal: no edema, pulses present Neurological: normal sensation, moves all 4 limbs flat affect Skin: normal turgor, cap refill <2 seconds Dx/Plan (1) Febrile illness Code(s): R50.9 - FEVER, UNSPECIFIED Status: Acute Comment: Likely due to retained and uncleared secretions, chest physiotherapy with percussion TID (2) General weakness Code(s): R53.1 - WEAKNESS Status: Chronic Comment: Likely multifactorial, inactivity, Parkinson's, PT for mobilization, Rehab transfer when stable (3) Toxic metabolic encephalopathy Code(s): G92 - TOXIC ENCEPHALOPATHY Status: Acute Comment: Stabilizing, resolving (4) Parkinson disease Code(s): G20 - PARKINSON'S DISEASE Status: Chronic Comment: ? medical mgmt, PT for mobilization - Plan plan discussed w/ family, PT/OT, social insurance administrator, speech therapy, respiratory therapy, out of bed/ambulate, DVT proph w/SCDs Stable overall -: Continue Chest Physiotherapy with percussion -: OOB with PT -: Mucolytics with Mucinex -: Likely to inpt rehab in 24h * .
[2018-10-19 17:11] VITALS: BP 170/81; TEMP 99.2
--- NOTE | 2018-10-20 15:18 | DIS ---
DATE OF ADMISSION: 10/10/2018 DATE OF DISCHARGE: 10/19/2018 DISCHARGE DIAGNOSES: 1. Toxic metabolic encephalopathy, multifactorial, resolved. 2. Febrile illness, likely due to pulmonary secretions, improved. 3. Generalized weakness, multifactorial. 4. Parkinson disease. 5. Deconditioning. 6. Benign prostatic hyperplasia. CONSULTATION: Dr. Koenig with Infectious Disease Service. PERTINENT LAB AND X-RAY FINDINGS: Creatinine ranged between 0.99 to 1.17, estimated GFR ranged between 59 to 72, magnesium level ranged between 1.6 to 1.8. AST ranged between 37 to 81, ALT ranged between 28 to 93. Vitamin B12 level 1060. Folate level 13.2. CBC showed a white blood cell count ranged between 7.5 to 13.2, hemoglobin ranged between 10.2 to 12.9. Blood culture 1 out of 2 positive for presumptive Corynebacterium species, likely contaminant. Urine culture dated 10/10/2018 showed no growth at 48 hours. Influenza A and B antigen dated 10/10/2018, negative. Respiratory panel PCR dated 10/10/2018, negative. C difficile antigen and toxin dated 10/16/2018, negative. Portable chest x-ray dated 10/10/2018, showed no acute cardiopulmonary process. CT of the brain without contrast dated 10/10/2018, showed chronic findings without acute process. Portable chest x-ray dated 10/11/2018, showed no acute cardiopulmonary process with shallow lung murillo. Bilateral lower extremity venous Doppler study dated 10/11/2018, showed no evidence for DVT. CT of the chest, abdomen, and pelvis dated 10/12/2018, showed bilateral pleural effusions with bibasilar atelectasis. Colonic diverticulosis without diverticulitis noted. Mild prostate enlargement. Age indeterminate superior endplate compression abnormality of T11. CT of the chest dated 10/18/2018, showed bilateral lower lobe pleural and parenchymal opacities with associated atelectasis. HOSPITAL COURSE: The patient was initially admitted after presenting with altered mental status and encephalopathy in the context of Parkinson disease with associated generalized weakness. The patient underwent extensive workup including metabolic evaluation as well as neuroimaging and plain radiographs. The patient was initially treated for suspected pneumonia with broad-spectrum IV antibiotic therapy and pulmonary support. The patient underwent extensive metabolic workup with essentially negative findings as stated previously. The patient was evaluated by the Infectious Disease Service due to recurrent fever. The patient was monitored on medical floor throughout the hospital course with indolent febrile trend with the ultimate etiology likely retained pulmonary secretions due to poor inspiratory effort in the context of Parkinson disease. The patient received chest physiotherapy including percussion with recommendations for ongoing chest physiotherapy after discharge. Due to the patient's overall deconditioned status and comorbid conditions, the patient was deemed an appropriate candidate for inpatient rehabilitation. I have examined the patient at the time of discharge and discussed followup instructions with the patient and , who verbalized understanding and in agreement. The patient is overall clinically stable, ready for discharge on 10/19/2018. DISCHARGE MEDICATIONS: 1. Enteric-coated aspirin 81 mg p.o. daily. 2. Proscar 5 mg p.o. daily. 3. Tamsulosin 0.4 mg p.o. daily. 4. Lovenox 40 mg subcutaneously daily. 5. Guaifenesin ER 600 mg p.o. b.i.d. p.r.n. 6. DuoNeb 3 mL nebulized q.2 hours p.r.n. 7. Multivitamin one tablet p.o. daily. 8. Florastor 250 mg p.o. daily. FOLLOWUP: The patient is to follow up with his primary care provider, Dr. Brett Calvo after discharge from inpatient rehabilitation. The patient may also follow up with his primary neurologist, Dr. Fuentes after discharge from inpatient rehabilitation. CONDITION ON DISCHARGE: Fair. ACTIVITY: Ad catrachita, rolling walker with standby assistance. SPECIAL INSTRUCTIONS: Continue chest physiotherapy with percussion b.i.d. DIET: Regular. CODE STATUS: Do not resuscitate. DISPOSITION: Discharged to [facility] inpatient rehabilitation on 10/19/2018. Total time preparing and coordinating discharge, 38 minutes. Job ID: [id number]
--- NOTE | 2018-10-21 17:50 | PQF ---
NADIRA CH YING FRANCISCO DO [id number] CLINICAL DOCUMENTATION CLARIFICATION FORM: POST DISCHARGE Addendum to original discharge summary date: ____ Late entry note date: __ DATE: 10/21/18 ATTN: Please exercise your independent, professional judgment in responding to the clarification form. Clinical indicators are provided on the bottom of this form for your review Please check appropriate box(s) to clarify if the following diagnosis has been ruled in or ruled out: Sepsis (CDI/Coding list diagnosis here) [ ] Ruled in diagnosis [ ] Continue to treat [ ] Resolved [ x ] Ruled out diagnosis [ ] Cannot rule out diagnosis [ ] Other diagnosis [ ] Unable to determine In addition, please specify: Present on Admission (POA): [ ] Yes [ ] No [ x ] Unable to determine For continuity of documentation, please document condition throughout progress notes and discharge summary. Thank You. CLINICAL INDICATORS - SIGNS / SYMPTOMS / LABS To support the diagnosis To support resolution of diagnosis Fever - H&P Respiration rate > 20 - H&P Pneumonia RISK FACTORS To support diagnosis Metabolic encephalopathy TREATMENTS To support diagnosis Antibiotics (This form is maintained as a part of the permanent medical record) 2014 [employer] All Rights Reserved [email or web address] [phone] TREATMENTS MTDD
== END 2018-10-19 19:40 | DRG 205 ==
LOC: ERS 09:54 → ERHOLD 13:11 → 2NO 23:22 → T4-B 10-11 18:48
PROVIDERS: ADMIT Internal Medicine; ATTEND Internal Medicine
DX: J98.8 Other specified respiratory disorders (principal); G92 Toxic encephalopathy; I24.8 Other forms of acute ischemic heart disease; Z86.73 Personal history of transient ischemic attack (TIA), and cerebral infarction without residual deficits; N18.2 Chronic kidney disease, stage 2 (mild); D64.9 Anemia, unspecified; G20 Parkinson's disease; I49.5 Sick sinus syndrome; Z95.0 Presence of cardiac pacemaker; Z66 Do not resuscitate; N40.0 Benign prostatic hyperplasia without lower urinary tract symptoms; J32.8 Other chronic sinusitis; Z88.0 Allergy status to penicillin; Z79.899 Other long term (current) drug therapy; Z88.2 Allergy status to sulfonamides; Z87.891 Personal history of nicotine dependence; E86.0 Dehydration; E83.42 Hypomagnesemia
CPT/HCPCS: 36415; 36416; 51701; 70450; 71045; 71250; 71260; 74177; 80048; 80053; 80202; 81003; 81015; 82553; 82607; 82746; 83605; 83690; 83735; 84484; 85025; 86140; 87040; 87086; 87324; 87449; 87633; 87798; 87804; 90471; 90670; 93005; 93970; 94640; 94667; 94668; 94760; 96361; 96365; G0009; J0696; J1650; J1956; J2185; J3370; J7050; J7620